=== PATIENT | male | born 1970 | race Caucasian/White ===

== ENCOUNTER 2017-08-14 13:02 | Inpatient (IN) ==
--- NOTE | 2017-08-14 13:24 | Emergency Department Note ---
Disposition Clinical Impression: Ischemic stroke, Sensory deficit, right, Broca's aphasia Disposition: Admitted As Inpatient Condition: Fair Time of Disposition: 21:48 Neuro HPI - General Chief Complaint: ED Neuro Symptoms/Deficit Stated Complaint: neuro symptoms Time Seen by Provider: 08/14/17 13:15 Source: patient Mode of arrival: ambulatory Limitations: no limitations Nursing Notes Reviewed: Yes Vital Signs Reviewed: Yes - History of Present Illness HPI Narrative: Mr. Crowe, 47-year-old male, presents from home for evaluation of neuro deficits. This began evening with right upper extremity decrease in sensation and very mild difficulty speaking. He was at his chiropractor Tuesday which did not improve or change his symptoms. Tuesday afternoon/evening , he developed right lower extremity decrease in sensation and his difficulty in speaking slightly progressed. Tuesday, his right upper and lower extremity sensory changes persisted and his difficulty in speaking worsened such that it was, at that point, noticed by his . This is unchanged through to Tuesday (today). Patient has no history of cardiac dysrhythmia. No history of CVA or TIA. ROS: Positive: As above Negative: Nausea, vomiting, headache, changes in vision, neck pain, fever, chills, chest pains, palpitations, dyspnea, diaphoresis, unusual back pains. He has no weakness or ataxia. - Related Data Home Medications: Home Medications Medication Instructions Recorded Confirmed Ibuprofen [Motrin] 600 mg PO Q8HR PRN 08/14/17 08/14/17 Allergies/Adverse Reactions: Allergies Allergy/AdvReac Type Severity Reaction Status Date / Time No Known Allergies Allergy Verified 08/14/17 13:05 All systems ED: reviewed and negative except as stated. Review of Systems: As Per HPI Past Medical History - Past Medical History Medical history: Reports: no medical history Psychiatric history: Reports: no psych history - Social History Smoking Status: Current every day smoker Alcohol use: Reports: rarely Drug use: Reports: none Physical Exam Vital Signs Reviewed General: Patient is alert, oriented, and in no acute distress. Head: atraumatic, normocephalic Eye: normal appearance, PERRL, EOMI, no scleral icterus, no conjunctival injection ENT: mucous membranes moist, normal external ear exam Neck: normal inspection, trachea midline, full ROM Chest: normal inspection, symmetric chest rise Respiratory: Good respiratory effort. Bilateral breath sounds are clear without wheezing, crackles, or rhonchi. Cardiovascular: Regular rate and rhythm. No clicks, rubs, gallops, or murmors. Normal heart sounds. Abdomen: Bowel sounds present normoactive x-4 quadrants. Abdomen is soft, nondistended, and nontender. No guarding or rebound. No organomegaly noted. Musculoskeletal: Spontaneously moving all extremities. Strength 5/5 and equal bilaterally in upper and lower extremities. Skin: warm, dry, intact. Neuro: Alert and oriented x4. Sensation light touch intact. Slight slurring of speech and difficulty finding his words. No facial asymmetry. Cranial nerves II through XII intact. No extremity drift. Negative finger-nose. Psych: Patient's affect is appropriate for situation. - General Limitations: no limitations General appearance: alert Course Course Narrative: Code stroke called. NIHSS 3. CT head showed no hemorrhage; concerning for left frontal lobe edema. MRI with contrast pending. Discussed the patient with [facility] aoc director combat operations officer neurology; no need to proceed to the robot as patient is not a tPa candidate. Discussed the patient with [place] [facility]. MRI without contrast was consistent with ischemia and no mass visualized. As such, their recommendation was to forgo MRI with contrast. I discussed the patient with on-call neurology, Dr. Gamble. He is agreeable to bring the patient into the hospital for continued evaluation and management. Recommend patient has aspirin at this time with further workup pending. I discussed the above in detail with the patient and his at bedside. We reviewed his MRI, the area of ischemia, and its relationship to his symptoms. We discussed the likely workup and the importance of admission to monitor him neurologically and further evaluate potential causes of his stroke. They express understanding and agree to admission for further evaluation and management. Discussed the patient with the admitting hospitalist who agrees to accept the patient for further evaluation and management. Head CT 08/14/17 13:19 IMPRESSION: Edema within the left frontal lobe and which could represent acute to subacute infarct. An underlying mass should be excluded. MRI would be helpful to further evaluate. Findings were called to the ordering service at 1:38 pm on 08/14/2017. D/ / Kristin Ravi Cha, MD / Kristin Ravi Cha, MD Interpreting Provider: Kristin Ravi Cha, MD Brain MRI 08/14/17 13:44 IMPRESSION: Acute moderate-sized left MCA infarct involving the left frontoparietal lobe. Small old bilateral cerebellar lacunes. D/ / 08/14/2017 15:38:33 Vasile Lee MD / [email or web address] Interpreting Provider: Vasile Lee MD Vital Signs Temperature 98.0 F 08/14/17 13:05 Pulse Rate 79 08/14/17 13:05 Respiratory Rate 16 08/14/17 13:05 Blood Pressure 128/80 08/14/17 13:05 O2 Sat by Pulse Oximetry 97 08/14/17 13:05 Temperature 98 F 08/14/17 17:17 Pulse Rate 78 08/14/17 21:08 Respiratory Rate 96 08/14/17 21:08 Blood Pressure 111/75 08/14/17 21:08 O2 Sat by Pulse Oximetry 97 08/14/17 17:17 Oxygen Delivery Oxygen Delivery Room Air Neuro Symptoms/Deficit - Medical Records Medical records reviewed: Yes I reviewed the patient's medical records. - Lab Data Lab results reviewed: Yes I reviewed the patient's lab results. Result diagrams: 08/14/17 13:21 08/14/17 13:21 Lab Results 08/14/17 08/14/17 08/14/17 Range/Units 13:21 13:21 13:21 WBC 9.3 (4.3-11.1) K/mcL RBC 5.14 (4.19-5.50) M/mcL Hgb 15.4 (12.9-16.9) g/dL Hct 46.1 (37.5-50.1) % MCV 89.7 (83.0-100.0) fL MCH 30.0 (28.0-33.3) pg MCHC 33.4 (31.6-35.5) g/dL RDW 13.7 (11.5-14.5) % Plt Count 246 (140-400) K/mcL MPV 9.3 L (9.4-12.4) fL Immature Gran % 0.2 (0-4) % Seg Neutrophils % 49.7 % Lymphocytes % 35.2 % Monocytes % 8.8 % Eosinophils % 5.2 % Basophils % 0.9 % Neutrophils # 4.6 (1.6-8.9) K/mcL Lymphocytes # 3.3 (0.6-4.6) K/mcL Monocytes # 0.8 (0.0-1.3) K/mcL Eosinophils # 0.5 (0.0-0.6) K/mcL Basophils # 0.1 (0.0-0.2) K/mcL Immature Plt Fraction 2.1 (1.1-6.1) % PT 10.5 (9.4-12.1) Seconds INR 1.0 APTT 26.6 (26.0-36.0) Seconds Sodium 140 (136-145) mEq/L Potassium 4.3 (3.5-5.1) mEq/L Chloride 111 H (98-107) mEq/L Carbon Dioxide 25 (23-29) mEq/L BUN 15 (6-20) mg/dL Creatinine 1.15 (0.70-1.30) mg/dL Est GFR ( Amer) > 60 (> 60) Est GFR (Non-Af Amer) > 60 (> 60) BUN/Creatinine Ratio 13 (6-26) Glucose 86 (70-105) mg/dL POC Glucose (58-89) Calculated Osmolality 290 (280-300) Calcium 9.3 (8.6-10.3) mg/dL Troponin I (< 0.04) ng/mL 08/14/17 08/14/17 Range/Units 13:21 13:35 WBC (4.3-11.1) K/mcL RBC (4.19-5.50) M/mcL Hgb (12.9-16.9) g/dL Hct (37.5-50.1) % MCV (83.0-100.0) fL MCH (28.0-33.3) pg MCHC (31.6-35.5) g/dL RDW (11.5-14.5) % Plt Count (140-400) K/mcL MPV (9.4-12.4) fL Immature Gran % (0-4) % Seg Neutrophils % % Lymphocytes % % Monocytes % % Eosinophils % % Basophils % % Neutrophils # (1.6-8.9) K/mcL Lymphocytes # (0.6-4.6) K/mcL Monocytes # (0.0-1.3) K/mcL Eosinophils # (0.0-0.6) K/mcL Basophils # (0.0-0.2) K/mcL Immature Plt Fraction (1.1-6.1) % PT (9.4-12.1) Seconds INR APTT (26.0-36.0) Seconds Sodium (136-145) mEq/L Potassium (3.5-5.1) mEq/L Chloride (98-107) mEq/L Carbon Dioxide (23-29) mEq/L BUN (6-20) mg/dL Creatinine (0.70-1.30) mg/dL Est GFR ( Amer) (> 60) Est GFR (Non-Af Amer) (> 60) BUN/Creatinine Ratio (6-26) Glucose (70-105) mg/dL POC Glucose 84 (58-89) Calculated Osmolality (280-300) Calcium (8.6-10.3) mg/dL Troponin I < 0.03 (< 0.04) ng/mL - Radiology Data Radiology results reviewed: Yes I reviewed the patient's radiology results. Head CT 08/14/17 13:19 IMPRESSION: Edema within the left frontal lobe and which could represent acute to subacute infarct. An underlying mass should be excluded. MRI would be helpful to further evaluate. Findings were called to the ordering service at 1:38 pm on 08/14/2017. D/ / Kristin Ravi Cha, MD / Kristin Ravi Cha, MD Interpreting Provider: Kristin Ravi Cha, MD Brain MRI 08/14/17 13:44 IMPRESSION: Acute moderate-sized left MCA infarct involving the left frontoparietal lobe. Small old bilateral cerebellar lacunes. D/ / 08/14/2017 15:38:33 Vasile Lee MD / [email or web address] Interpreting Provider: Vasile Lee MD Stroke Scale - Level of Consciousness LOC: Alert - LOC Questions LOC Questions: Answers both correctly - LOC Commands LOC Commands: Performs both correctly - Best Gaze Best Gaze: Normal - Visual Visual: No visual loss - Facial Palsy Facial Palsy: Normal - Motor Arms Motor Arm-Left: No drift for 10 seconds Motor Arm-Right: No drift for 10 seconds - Motor Legs Motor Leg-Left: No drift for 5 seconds Motor Leg-Right: No drift for 5 seconds - Limb Ataxia Limb Ataxia: Normal, No Ataxia - Sensory Sensory: Mild to moderate loss, "not as sharp" - Best Language Best Language: Mild to moderate aphasia. Examiner can identify picture from response - Dysarthria Dysarthria: Mild, slurs some words - Extinction and Inattention Extinction and Inattention: Normal - NIHSS Total Score NIHSS Total Score: 3 TPA Checklist - Source Information Source: Patient - Eligibilty for IV tPA 1. LKW equal to or less than 4.5 hours be before treatment: No - LKW: 3-4.5 hrs Add. Warnings/Precautions Patient/family understanding: The patient/family members have been counseled and understood the risk, benefit , and alternatives of treatment. Critical Care Time Critical Care Time: Yes Total Critical Care Time: 35 Attestation: The high probability of a clinically significant, sudden or life threatening deterioration of the [neuro] system(s) required my full and direct attention, intervention and personal management. The aggregate critical care time was [35] minutes. This time is in addition to time spent performing reported procedures but includes the following: [x] Data Review and interpretation [x] Patient assessment and monitoring of vital signs [x] Documentation [x] Medication orders and management Attestation Statement - Attestation Attestation: I examined this patient and my medical decision-making was reviewed with the Resident Physician, Dr. Carreno. I agree with the documented findings, disposition and treatment plan as described except to the extent set forth below. Patient is a 47-year-old white male who presents to the emergency department brought by his today for concerns for difficulty finding words and right- sided numbness that has been developing gradually evening. Patient reports that he seen a chiropractor before for back pain and he thought he was having some numbness due to related back discomfort and was seen on Tuesday at the chiropractor's office had treatment but without improvement. Then Tuesday morning patient began to feel like his speech was worsening and he was having persistent right-sided numbness in the right arm and leg. Patient has clear speech but has difficulty thinking of what to say to answer questions. Patient with no focal weakness or facial droop on exam. Stroke alert was called. I agree with patient's physical exam findings as documented. Vital signs are stable on arrival. Patient is in no acute distress. Pt was sent for immediate noncontrast head CT which showed findings concerning for possible infarct versus mass in the left frontoparietal area. MRI showed acute moderate left MCA stroke. Case was discussed with neuro he was consulted from the ED as well as the hospitalist. Patient received aspirin and has been neurologically stable resting comfortably with stable vital signs.
[2017-08-14 13:29] LABS: Basophils # 0.1 K/mcL (0.0-0.2); Basophils % 0.9 %; Eosinophils # 0.5 K/mcL (0.0-0.6); Eosinophils % 5.2 %; Hematocrit 46.1 % (37.5-50.1); Hemoglobin 15.4 g/dL (12.9-16.9); Immature Granulocytes % 0.2 % (0-4); Immature Platelets 2.1 % (1.1-6.1); Lymphocytes # 3.3 K/mcL (0.6-4.6); Lymphocytes % 35.2 %; Mean Corpuscular HGB Conc 33.4 g/dL (31.6-35.5); Mean Corpuscular Volume 89.7 fL (83.0-100.0); Mean Platelet Volume 9.3 fL (9.4-12.4); Monocytes # 0.8 K/mcL (0.0-1.3); Monocytes % 8.8 %; Neutrophils # 4.6 K/mcL (1.6-8.9); Platelet Count 246 K/mcL (140-400); Red Blood Count 5.14 M/mcL (4.19-5.50); Red Cell Distribution Width 13.7 % (11.5-14.5); Segmented Neutrophils % 49.7 %
[2017-08-14 13:40] LABS: Prothrombin Time 10.5 Seconds (9.4-12.1)
[2017-08-14 13:43] LABS: Activated Partial Thrombo Time 26.6 Seconds (26.0-36.0)
[2017-08-14] MEDS ORDERED: Aspirin 81 MG TAB.CHEW PO ONE (13:45)
[2017-08-14 13:46] LABS: BUN/Creatinine Ratio 13 (6-26); Blood Urea Nitrogen 15 mg/dL (6-20); Calcium 9.3 mg/dL (8.6-10.3); Carbon Dioxide 25 mEq/L (23-29); Chloride 111 mEq/L (98-107); Glucose 86 mg/dL (70-105); Osmolality,Calculated 290 (280-300); Potassium 4.3 mEq/L (3.5-5.1); Sodium 140 mEq/L (136-145); eGFR For African Americans > 60 (> 60); eGFR For Non-African Americans > 60 (> 60)
--- NOTE | 2017-08-14 18:05 | Internal Med History&Physical ---
Date of Encounter: 08/15/17 Time of Encounter: 18:00 Assessment and Plan (1) Left acute arterial ischemic stroke, MCA (middle cerebral artery) Current visit: Yes Status: Acute Continue aspirin 325 mg daily PT/OT goal LDL <70 Echocardiogram drug screen Neurology consulted, recommendations appreciated. Internal Medicine - H&P: HPI History of present illness: Mr. Crowe is a 47 year old male presented to ED with difficultly with speech and right sided extremity numbness. occurred 4 days ago. Patient went to chiropractor to improve symptoms but did not help. Patient had CT head done in ED showing hypodensity of MCA distribution and a follow-up MRI showed ischemia of left MCA. Patient states symptoms are near resolved except some residual numbness. He has no known past medical history. He denies drug use, denies family history of VTE. Past Med Surg Social Fam HX - Past Medical History Medical history: no medical history Psychiatric history: no psych history - Past Surgical History Surgical History: appendectomy - Social History Smoking Status: Current every day smoker Packs per day: 1/2 PPD Alcohol use: rarely Drug use: none - Family History Mother Living Status: Still Living Hx Family Medical Disorders: Yes (DVT in LEGS) Father Living Status: Still Living Internal Medicine - H&P: Meds Ibuprofen [Motrin] 600 mg PO Q8HR PRN 08/14/17 [History] 3 Allergy/AdvReac Type Severity Reaction Status Date / Time No Known Allergies Allergy Verified 08/14/17 13:05 All Systems PM: A 10-system review of systems was performed and is negative for pertinent findings except as documented above in the HPI. - Constitutional Constitutional: no chills, no fever(s), no night sweats - EENT Eyes: no change in vision, no discharge, no pain, no photophobia Ears: no ear discharge, no ear pain, no tinnitus Nose, mouth and throat: no dysphagia, no nasal discharge, no neck pain, no sore throat - Cardiovascular Cardiovascular ROS IM: no chest pain, no diaphoresis, no dyspnea, no lightheadedness, no palpitations, no syncope - Respiratory Respiratory: no cough, no dyspnea, no wheezing, no excessive phlegm production - Gastrointestinal Gastrointestinal: no abdominal pain, no diarrhea, no hematemesis, no hematochezia, no melena, no nausea, no vomiting - Musculoskeletal Musculoskeletal ROS IM: numbness, tingling - Integumentary Integumentary IM: no rash, no unusual bruising - Neurological Neurological ROS: abnormal speech, numbness, tingling, no confusion, no convulsions, no focal weakness, no tremor(s) - Hematologic/Lymphatic Hematologic/Lymphatic: no easy bruising - Constitutional Vitals: Temp Pulse Resp BP Pulse Ox 98 F 61 17 124/84 97 08/14/17 17:17 08/14/17 17:17 08/14/17 17:17 08/14/17 17:17 08/14/17 17:17 - Head Head exam: Present: atraumatic, normocephalic - Eye Eye exam: Present: PERRL, conjuntiva pink, sclera anicteric Pupils: Present: PERRL - Neck Neck exam general surgery: Present: supple, trachea midline. Absent: lymphadenopathy - Respiratory Respiratory exam: Present: CTAB. Absent: accessory muscle use, rales, rhonchi, wheezes - Cardiovascular Cardiovascular exam: Present: RRR, +S1, +S2. Absent: diastolic murmur, gallop, rubs, systolic murmur - GI/Abdominal GI/Abdominal exam: Present: normal bowel sounds, soft, no peritoneal signs. Absent: distended, tenderness - Extremities Exam Extremities exam: Present: warm, radial pulses palpable and symmetrical. Absent : calf tenderness, cyanotic, pedal edema - Neurological Exam Neurological exam: Present: CN II-XII intact, oriented X3, no focal deficits. Absent: pronater drift, facial droop, speech deficit - Skin Skin exam: Present: dry, intact Internal Med - H&P Results - Labs CBC & Chem 7: 08/15/17 05:52 08/15/17 05:52
[2017-08-14] MEDS ORDERED: Acetaminophen 325 MG TABLET PO PRN (19:25)
[2017-08-14] MEDS ORDERED: Naloxone 0.4 MG/ML INJ IVP PRN (19:25)
--- NOTE | 2017-08-14 20:55 | Neurology - Consult Note ---
Date of Encounter: 08/14/17 Time of Encounter: 05:40 Assessment and Plan (1) Left acute arterial ischemic stroke, MCA (middle cerebral artery) Current Visit: Yes Status: Acute PT already had MRI of head showed evidence of acute moderate-sized left MCA infarct involving the left frontoparietal lobe. Considering patient history seemed like he did not have much risk factors apparently he did not have any history of hypertension or diabetes or any other risk factors except age and smoking. The infarct seems to be in the typical MCA distribution currently he has been on antiplatelet therapy with aspirin only have suggested they should continue but he would need stroke workup including MRI of the brain, echocardiogram as well as carotid duplex to look for any embolic source. Also need to monitor him for any atrial fibrillation and at the same time also suggest to check for any intracranial stenosis recommended getting a CT angiogram of the head and neck and particularly for any findings to be concern of vasculitis especially because of his age and at the same time also suggest getting a thrombotic tendency profile. He denies any family history of a stroke at an early age but certainly that need to be excluded. For secondary stroke prevention patient should continue daily antiplatelet medication and vascular risk factor modification. Order the following test, *MRI of the brain without contrast. *Antiplatelet medication, aspirin 325 mg daily. *Consult physical therapy/ rehabilitation * To reduce the risk of future ischemic stroke patient need continued vascular risk modification, following's are the recommended guidelines LDL goal less than 70 MG per deciliter Smoking cessation reinforced. Blood pressure control should achieve less than 130/80 mmHg BP management should aim to achieve long-term control in a reasonable amount of time. weight management goal for BMI is 18.5 -24.9 Kg/m2 Alcohol : No more than 2 drinks per day for men Patient to continue to follow-up with his primary care physician for continued outpatient risk factor management and modification. History of Present Illness HPI: Mr. Crowe is a 47 year old male admitted from for evaluation of difficulty with speech, and right sided numbness, This began evening with right upper extremity decrease in sensation and very mild difficulty speaking. He was at his chiropractor Tuesday morning which did not improve or change his symptoms. Tuesday afternoon/evening, he developed right lower extremity decrease in sensation and his difficulty in speaking slightly progressed. Tuesday morning, his right upper and lower extremity sensory changes persisted and his difficulty in speaking worsened so finally he came to ER, CT of head showed hypodensity in left MCA distribution. later had MRI of brain showed ischemic changes Past Med Surg Social Fam HX - Past Medical History Medical history: no medical history Psychiatric history: no psych history - Past Surgical History Surgical History: appendectomy - Social History Smoking Status: Current every day smoker Packs per day: 1/2 PPD Alcohol use: rarely Drug use: none - Family History Mother Living Status: Still Living Hx Family Medical Disorders: Yes (DVT in LEGS) Father Living Status: Still Living Medications and Allergies Ibuprofen [Motrin] 600 mg PO Q8HR PRN 08/14/17 [History] 3 Allergy/AdvReac Type Severity Reaction Status Date / Time No Known Allergies Allergy Verified 08/14/17 13:05 All Systems: A 10-system review of systems was performed and is negative for pertinent findings except as documented above in the HPI. Physical Examination - Vital Signs Vital Signs: Initial Vital Signs Temp Pulse Resp BP Pulse Ox 98.0 F 79 16 128/80 97 08/14/17 13:05 08/14/17 13:05 08/14/17 13:05 08/14/17 13:05 08/14/17 13:05 - Constitutional General appearance: comfortable - Neurologic Sensorimotor examination: intact Detailed motor examination: full strength in all major muscle groups Motor examination - right side: 5/5: deltoids, biceps, triceps, wrist flexion, wrist extension, primary substance abuse counselor, hip flexors, tibialis Anterior, quadriceps, toe extension (EHL), plantarflexion Motor examination - left side: 5/5: deltoids, biceps, triceps, wrist flexion, wrist extension, hip flexors, primary substance abuse counselor, quadriceps, tibialis Anterior, toe extension (EHL), plantarflexion Detailed sensory examination: other (decreased sensation in right upper ext) Reflexes: Biceps: 1+, Triceps: 1+, Brachioradialis: 1+, Patella: 1+, Achilles: 1 + Mental Status Examination: awake, alert, oriented to person, oriented to place, oriented to time, follows commands appropriately, answers questions appropriately, no agnosia, no aphasia, no aproxia, expressive aphasia ( difficulty in naming, and repetetion, comprehension intact) Cranial nerve examination: PERRL, EOMI, visual jarrett intact, corneal reflexes brisk symmetrically, sensory to face intact, mastication intact, no facial asymmetry is present, hearing is intact symmetrically, soft palate elevates bilaterally upon phonation, gag reflex intact, flexes SCM and trapezius muscles symmetrically with full power, tongue protrudes midline, no atrophy or facial fasiculations present Cerebellar examination: no dysmetria, performs finger to nose and heel to michael symmetrically without ataxia, no gait ataxia, no truncal ataxia, no difficulty with rapid alternating movements Results - Laboratory Findings CBC and BMP: 08/14/17 13:21 08/14/17 13:21 Abnormal lab findings: Abnormal lab results MPV 9.3 fL (9.4-12.4) L 08/14/17 13:21 Chloride 111 mEq/L (98-107) H 08/14/17 13:21 - Diagnostic Findings Additional findings: MRi of brain showed Acute moderate-sized left MCA infarct involving the left frontoparietal lobe. Small old bilateral cerebellar lacunes. Consult Discharge Plan - Plan Referrals: Syed Mireles MD [Primary Care Provider] -
[2017-08-14 23:19] LABS: Vitamin B12 240 pg/mL (250-1100)
[2017-08-14 23:37] LABS: Rheumatoid Factor < 10 IU/mL (Less than 14)
[2017-08-15] MEDS: Ibuprofen 800 MG TABLET PO PRN ×2 (00:19→19:51)
[2017-08-15 06:47] LABS: Basophils # 0.1 K/mcL (0.0-0.2); Basophils % 0.9 %; Eosinophils # 0.4 K/mcL (0.0-0.6); Eosinophils % 5.4 %; Hematocrit 43.5 % (37.5-50.1); Hemoglobin 14.7 g/dL (12.9-16.9); Immature Granulocytes % 0.1 % (0-4); Lymphocytes # 2.6 K/mcL (0.6-4.6); Lymphocytes % 33.1 %; Mean Corpuscular HGB Conc 33.8 g/dL (31.6-35.5); Mean Corpuscular Hemoglobin 30.2 pg (28.0-33.3); Mean Corpuscular Volume 89.5 fL (83.0-100.0); Mean Platelet Volume 9.9 fL (9.4-12.4); Monocytes # 0.7 K/mcL (0.0-1.3); Monocytes % 9.3 %; Platelet Count 223 K/mcL (140-400); Red Blood Count 4.86 M/mcL (4.19-5.50); Red Cell Distribution Width 13.8 % (11.5-14.5); Segmented Neutrophils % 51.2 %
[2017-08-15 07:09] LABS: BUN/Creatinine Ratio 18 (6-26); Blood Urea Nitrogen 17 mg/dL (6-20); Calcium 8.9 mg/dL (8.6-10.3); Carbon Dioxide 23 mEq/L (23-29); Chloride 111 mEq/L (98-107); Glucose 98 mg/dL (70-105); Osmolality,Calculated 288 (280-300); Sodium 138 mEq/L (136-145); eGFR For African Americans > 60 (> 60); eGFR For Non-African Americans > 60 (> 60)
[2017-08-15] MEDS: Aspirin 325 MG TABLET PO SCH (09:08)
--- NOTE | 2017-08-15 15:11 | Internal Med Progress Note ---
Date of Encounter: 08/15/17 Time of Encounter: 10:15 - Assessment and plan (1) Left acute arterial ischemic stroke, MCA (middle cerebral artery) Current Visit: Yes Status: Acute Assessment and plan: Acute CVA -outside of TPA window 2D Echo does show possible PFO w Rto left shunt consult placed for cardiology He does have a questionable history of a DVT. Appreciate neuro workup for hypercoagulable state PT consult pending per OT consult- he may be able to go home Needs speech eval- significant speech deficit Will convert to inpatient based on acuteness of CVA for now maximize medical management as per suggestion from neurology (2) Sensory deficit, right Current Visit: Yes Status: Acute Assessment and plan: see plan above - Time Spent With Patient 25 - 35 minutes (greater than 50% time spent in) - Subjective Interval history: Eyes new symptoms overnight. Patient does have some speech deficit at this point his overall strength is better has stated that his right arm feels funny - Constitutional Vitals: Temp Pulse Resp BP Pulse Ox 97.8 F 66 14 118/65 94 08/15/17 15:04 08/15/17 15:04 08/15/17 15:04 08/15/17 15:04 08/15/17 15:04 Exam: General , Alert , oriented, no confusion HEENT- PERRLA. EOMI CVS- S1S2 N, No Murmurs, Rubs, gallops, No JVD RS- CTA Bilaterally. No rales no Rhonchi heard Abdomen- Soft NT ND, bowel sounds heard across all 4 quadrants Neuro- speech deficit- speaks slowly, CN 2-12 intact, Motors- power 5/5 UE, 5/5 LE Bilaterally, Sensations intact Extremeties- no Clubbing/ edema/ wounds seen Internal Medicine: Result - Labs CBC & Chem 7: 08/15/17 05:52 08/15/17 05:52 Labs: Short CBC 08/15/17 Range/Units 05:52 WBC 7.8 (4.3-11.1) K/mcL Hgb 14.7 (12.9-16.9) g/dL Hct 43.5 (37.5-50.1) % Plt Count 223 (140-400) K/mcL Neutrophils # 4.0 (1.6-8.9) K/mcL BMP 08/15/17 05:52 Sodium 138 Potassium 4.0 Chloride 111 H Carbon Dioxide 23 BUN 17 Creatinine 0.97 Glucose 98 Calcium 8.9 - ABG Interpretation ABG results: PT/INR, D-dimer PT 10.5 Seconds (9.4-12.1) 08/14/17 13:21 - Impressions Impressions Head CTA 08/14/17 21:01 IMPRESSION: Unremarkable CTA of the head and neck. In particular there is no left MCA intra-arterial thrombus or stenosis. D/ / Bill Esparza MD / Bill Esparza MD Interpreting Provider: Bill Esparza MD Neck CTA 08/14/17 21:01 IMPRESSION: Unremarkable CTA of the head and neck. In particular there is no left MCA intra-arterial thrombus or stenosis. D/ / Bill Esparza MD / Bill Esparza MD Interpreting Provider: Bill Esparza MD Echocardiogram 08/15/17 19:28 Impressions: LVEF 60-65%. Normal LV chamber size, wall thickness and function. Mild left ventricular diastolic dysfunction. Normal right ventricular structure and function. Unable to estimate RVSP due to lack of TR jet. No significant valvular dysfunction. Suboptimal image quality, but there evidence of a right to left shunt with agitated saline, possibly representing a small PFO. Left Ventricular Wall Motion: Rest Echo Findings All wall segments showed normal motion. Findings: Study Quality * Technically adequate exam. ECG Findings * Normal sinus rhythm. Left Ventricle * LVEF 60-65%. * Normal LV chamber size, wall thickness and function. * Mild left ventricular diastolic dysfunction. Right Ventricle * Normal right ventricular structure and function. Left Atrium * Normal left atrial size. Right Atrium * Normal right atrial size. Interatrial Septum * Suboptimal image quality, but there evidence of a right to left shunt with agitated saline, possibly representing a small PFO. Aortic Valve * Trileaflet aortic valve with normal function. * No aortic regurgitation. * No aortic stenosis. Mitral Valve * Normal mitral valve structure and function. * No mitral regurgitation. * No mitral stenosis. Tricuspid Valve * Normal tricuspid valve structure and function. * No tricuspid regurgitation. * Unable to estimate RVSP due to lack of TR jet. Pulmonic Valve * Normal pulmonic valve structure and function. * No pulmonic regurgitation. Aorta * Normally sized aortic root. Pericardium * The pericardium appears normal. IVC * Normal IVC dimensions and inspiratory collapse. Pulmonary Artery * Normal visualized portions of the main pulmonary artery. Consult Discharge Plan - Plan Referrals: Syed Mireles MD [Primary Care Provider] -
--- NOTE | 2017-08-15 16:51 | Neurology Progress Note ---
Date of Encounter: 08/15/17 Time of Encounter: 07:20 Assessment and Plan (1) Left acute arterial ischemic stroke, MCA (middle cerebral artery) Current Visit: Yes Status: Acute Overall stable but continued to have features of aphasia. He is getting a stroke workup. CT angiogram of the cervical spine did not show any critical stenosis in the carotid. Elevates echocardiogram today. Suggest to continue on his statin as well as aspirin for now. Suggested monitor for any atrial fibrillation perhaps he could have paroxysmal A. fib/ As the stroke seems to be embolic in the left MCA distribution. Hypercoagulable workup has been ordered. Patient would need long-term speech therapy. If echo is inconclusive perhaps he may need a DHARMESH. We will follow the patient with you Subjective Interval history: The patient seems to be stable no new symptoms continued to have features of Broca's aphasia no focal motor deficit Scheduled for echocardiogram today. CT angiogram of the neck did not show any acute abnormality. Objective - Constitutional Vitals: Temp Pulse Resp BP Pulse Ox 97.8 F 66 14 118/65 94 08/15/17 15:04 08/15/17 15:04 08/15/17 15:04 08/15/17 15:04 08/15/17 15:04 - Neurological Exam Sensorimotor examination: Present: intact Motor Examination: Present: full strength in all major muscle groups Motor examination - left side: 5/5: deltoids, biceps, triceps, wrist flexion, wrist extension, hip flexors, energy attorney, quadriceps, tibialis Anterior, toe extension (EHL), plantarflexion Sensation intact: Present: other (decreased sensation in right upper ext) Mental Status Examination: Present: awake, alert, oriented to person, oriented to place, oriented to time, follows commands appropriately, answers questions appropriately, no agnosia, no aphasia, no aproxia, expressive aphasia ( difficulty in naming, and repetetion, comprehension intact) Cranial nerve examination: Present: PERRL, EOMI, visual jarrett intact, corneal reflexes brisk symmetrically, sensory to face intact, mastication intact, no facial asymmetry is present, hearing is intact symmetrically, soft palate elevates bilaterally upon phonation, gag reflex intact, flexes SCM and trapezius muscles symmetrically with full power, tongue protrudes midline, no atrophy or facial fasiculations present Cerebellar examination: Present: no dysmetria, performs finger to nose and heel to michael symmetrically without ataxia, no gait ataxia, no truncal ataxia, no difficulty with rapid alternating movements Results - Laboratory Findings CBC and BMP: 08/15/17 05:52 08/15/17 05:52 Abnormal lab findings: Abnormal lab results Chloride 111 mEq/L (98-107) H 08/15/17 05:52 Vitamin B12 240 pg/mL (250-1100) L 08/14/17 22:22 Consult Discharge Plan - Plan Referrals: Syed Mireles MD [Primary Care Provider] -
--- NOTE | 2017-08-15 17:38 | Electrocardiograph Report ---
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
[2017-08-15] MEDS: *HR* Heparin 5,000 UNIT/ML VIAL SQ SCH (19:48)
[2017-08-16] MEDS: *HR* Heparin 5,000 UNIT/ML VIAL SQ SCH ×2 (06:17→17:45)
[2017-08-16 07:36] LABS: Homocysteine 23 umol/L (<=10)
--- NOTE | 2017-08-16 08:50 | Neurology Progress Note ---
Date of Encounter: 08/16/17 Time of Encounter: 07:00 Assessment and Plan (1) Left acute arterial ischemic stroke, MCA (middle cerebral artery) Current Visit: Yes Status: Acute overall stable, no new symptoms, so far no source of emboli, 2D Echo does show possible PFO w Rt to left shunt. schedule for DHARMESH today In particularly to look for any embolic source in the atrium. As is a concern of flow [id number] shunt may need venous duplex of lower extremities. Thrombotic tendency profile is pending. After DHARMESH patient could be discharged he would need a speech therapy As significant a speech deficit. Also recommend long-term Holter monitoring or perhaps may need a loop recorder especially if DHARMESH did not show any abnormality. Patient continued on antiplatelet therapy with aspirin 325 mg daily along with a statin. Patient will need follow-up in neurology in 2-3 weeks after discharge Subjective Interval history: The patient seems to be stable no new symptoms continued to have features of Broca's aphasia no focal motor deficit CT angiogram of the neck did not show any acute abnormality or any critical stenosis, 2D Echo does show possible PFO w Rto left shunt. Objective - Constitutional Vitals: Temp Pulse Resp BP Pulse Ox 97.6 F 64 14 106/68 95 08/16/17 06:50 08/16/17 06:50 08/16/17 06:50 08/16/17 06:50 08/16/17 06:50 - Neurological Exam Sensorimotor examination: Present: intact Motor Examination: Present: full strength in all major muscle groups Motor examination - left side: 5/5: deltoids, biceps, triceps, wrist flexion, wrist extension, hip flexors, stretcher helper, quadriceps, tibialis Anterior, toe extension (EHL), plantarflexion Sensation intact: Present: other (decreased sensation in right upper ext) Mental Status Examination: Present: awake, alert, oriented to person, oriented to place, oriented to time, follows commands appropriately, answers questions appropriately, no agnosia, no aphasia, no aproxia, expressive aphasia ( difficulty in naming, and repetetion, comprehension intact) Cranial nerve examination: Present: PERRL, EOMI, visual jarrett intact, corneal reflexes brisk symmetrically, sensory to face intact, mastication intact, no facial asymmetry is present, hearing is intact symmetrically, soft palate elevates bilaterally upon phonation, gag reflex intact, flexes SCM and trapezius muscles symmetrically with full power, tongue protrudes midline, no atrophy or facial fasiculations present Cerebellar examination: Present: no dysmetria, performs finger to nose and heel to michael symmetrically without ataxia, no gait ataxia, no truncal ataxia, no difficulty with rapid alternating movements Results - Laboratory Findings CBC and BMP: 08/15/17 05:52 08/15/17 05:52 Abnormal lab findings: Abnormal lab results Chloride 111 mEq/L (98-107) H 08/15/17 05:52 Vitamin B12 240 pg/mL (250-1100) L 08/14/17 22:22 Homocysteine 23 umol/L (<=10) H 08/14/17 22:22 Consult Discharge Plan - Plan Referrals: Syed Mireles MD [Primary Care Provider] -
[2017-08-16] MEDS ORDERED: Cyanocobalamin (B-12) 1,000 MCG/ML VIAL IM ONE (09:08)
[2017-08-16] MEDS ORDERED: 0.9 % Sodium Chloride 500 ML IVC ONE (10:14)
[2017-08-16] MEDS ORDERED: Tetracaine/Benzocaine/Butamben 200MG/SPRAY (100SPY/BOT) MM ONE (10:14)
[2017-08-16] MEDS ORDERED: Lidocaine Viscous Oral Soln 15 ML SOLUTION MM PRN (10:14)
[2017-08-16] MEDS: *HR* Midazolam HCl 5 MG/5 ML VIAL IVP PRN ×3 (10:40→10:50)
[2017-08-16] MEDS: *HR* FentaNYL (PF) 100 MCG/2 ML VIAL IVP PRN ×3 (10:40→10:50)
[2017-08-16] MEDS: Aspirin 325 MG TABLET PO SCH (12:21)
[2017-08-16] MEDS: Vitamin B Complex/Vit C/Vit E 1 EACH TABLET PO SCH (12:21)
--- NOTE | 2017-08-16 12:47 | Electrophysiology Consult Note ---
<George Trevino R - Last Filed: 08/16/17 12:53> Date of Encounter: 08/16/17 Time of Encounter: 12:46 Assessment and Plan (1) Left acute arterial ischemic stroke, MCA (middle cerebral artery) Status: Acute Neurology following. TTE showed possible PFO with right to left shunt. DHARMESH today showed evidence of a PFO with right to left shunt. Neurology mentioned if [id number] shunt may need venous duplex of lower extremities. Will order. Thrombotic tendency profile is pending. Although a PFO is noted, closure is not done at [facility] and there is still concern of underlying arrhythmia that may have caused the CVA. EKG shows sinus rhythm and no arrhythmias noted on telemetry. Discussed with Dr. Elijah Raymundo, who recommends loop insertion to further monitor for underlying arrhythmia. R/B/A discussed and pt agrees to proceed. Had sedation for DHARMESH earlier today, but pt is lucid, alert and oriented x 3, capable of making his own medical decisions. Agree with neurology recommendations of antiplatelet therapy with aspirin 325 mg daily along with a statin. Pending Loop recorder insertion, would be okay for d/c home later today from a cardiac standpoint. Will discuss and review with Dr. Elijah Raymundo. (2) PFO (patent foramen ovale) Status: Acute PFO with right to left shunt noted on DHARMESH. PFO closures not performed at [place]. Typically, closure is not warranted unless recurrent CVA on anticoagulation. As above, plan for loop insertion given concern of underlying arrhythmia as cause of embolic CVA. Discussion w patient/family: The assessment and plan as outlined above was discussed with the patient and/or family members who expressed understanding and agreement. All questions were answered. Thank you for involving us in the care of your patient. Please call with any questions. I will discuss and review all the above with Dr. Elijah Raymundo and make changes as necessary. History of Present Illness Consult date: 08/16/17 Requesting physician: Ella Graf Consult reason: CVA, evaluate for loop Chief complaint: weakness History of present illness: Mr. Crowe is a 47 year old male that presented to ED with difficultly with speech and right sided extremity numbness, occurring 4 days prior to presentation. Patient went to chiropractor to improve symptoms but did not help. Patient had CT head done in ED showing hypodensity of MCA distribution and a follow-up MRI showed acute moderate-sized left MCA infarct involving the left frontoparietal lobe. CVA felt to be embolic in nature. TTE showed preserved EF, could not rule out PFO. Pt underwent DHARMESH today, showed PFO with right to left shunt. EP consulted for further recommendations. No hx of arrhythmias. Telemetry and EKGs reviewed without significant findings. Pt denies palpitations, chest pain or dyspnea. Past Med Surg Social Fam HX - Past Medical History Medical history: no medical history Psychiatric history: no psych history - Past Surgical History Surgical History: appendectomy - Social History Smoking Status: Current every day smoker Packs per day: 0.5 Smokeless Tobacco Status: Yes Alcohol use: rarely Drug use: none - Family History Mother Living Status: Still Living Hx Family Medical Disorders: Yes (DVT in LEGS) Father Living Status: Still Living Medications and Allergies Ibuprofen [Motrin] 600 mg PO Q8HR PRN 08/14/17 [History] Aspirin 325 mg PO DAILY #30 tablet 08/17/17 [Rx] Atorvastatin [Lipitor] 40 mg PO HS #30 tablet 08/17/17 [Rx] 3 Allergy/AdvReac Type Severity Reaction Status Date / Time No Known Allergies Allergy Verified 08/14/17 13:05 All Systems Review: A 10-system review of systems was performed and is negative for pertinent findings except as documented above in the HPI. - Constitutional Constitutional: weakness - Neurological Neurological: focal weakness, numbness Physical Examination Vital Signs, Last 4 Hours Temp Pulse Resp BP Pulse Ox 08/16/17 10:19 97.8 F 65 14 111/68 96 Vital Signs Temp Pulse Resp BP Pulse Ox 08/16/17 10:19 97.8 F 65 14 111/68 96 08/16/17 06:50 97.6 F 64 14 106/68 95 08/16/17 05:39 98.2 F 68 18 97/66 94 08/15/17 20:02 94 08/15/17 18:19 97.7 F 63 18 114/69 96 08/15/17 15:04 97.8 F 66 14 118/65 94 Intake and Output 08/15/17 08/16/17 08/16/17 23:59 07:59 15:59 Intake Total 240 / 240 0 / 0 500 / 500 Output Total 200 / 200 Balance 240 / 240 -200 / -200 500 / 500 Intake: IV Fluids 500 / 500 0.9 % Sodium Chloride 500 ML @ 500 / 500 150 mls/hr IVC .Q3H20M ONE Rx#: [id number] Oral 240 / 240 0 / 0 0 / 0 Output: Urine 200 / 200 Other: Meal Dinner Breakfast Percent of Meal Consumed 100% 0% # Voids 2 Weight 78.1 kg 78.018 kg Patient Weight 08/16/17 23:59 Weight 78.018 kg General: Conversant, No Apparent Distress HEENT: Atraumatic, Normocephaly, Mucus Membranes Moist Neck: No JVD, Normal carotid pulses Cardiac: Reg Rate and Rhythm, Normal S1 and S2, No Murmur Lungs: Normal Breath Sounds, No Wheeze, Rales, Rhonchi Neuro: Alert and responsive, No focal deficits noted Abdomen: Soft, Non-Tender Skin: No rashes noted on visualized skin Musculoskeletal: No Chest Wall Tenderness Extremities: No Clubbing, No Cyanosis, No Edema, Normal Pulses Results 08/15/17 05:52 08/15/17 05:52 Active Medications Acetaminophen (Tylenol) 650 mg PO Q6H PRN PRN Reason: Mild Pain/Fever Stop: 02/13/18 19:26 Aspirin (Aspirin) 325 mg PO DAILY [facility] Stop: 02/14/18 09:01 Last Admin: 08/16/17 12:21 Dose: 325 mg Heparin Sodium (Porcine) (Heparin) 5,000 unit SQ Q12HR SIRISHA Stop: 02/14/18 18:01 Last Admin: 08/16/17 06:17 Dose: 5,000 unit Sodium Chloride (0.9 % Sodium Chloride) 500 mls @ 150 mls/hr IVC .Q3H20M ONE Stop: 08/16/17 13:33 Last Infusion: 08/16/17 11:11 Dose: Infused Ibuprofen (Motrin) 800 mg PO Q8HR PRN; Protocol PRN Reason: Pain Stop: 02/14/18 00:07 Last Admin: 08/15/17 19:51 Dose: 800 mg Naloxone HCl (Narcan) 0.4 mg IVP Q2MIN PRN PRN Reason: SEE COMMENTS Stop: 02/13/18 19:26 Vitamin B Complex/Vit C/Vit E (Stresstab) 1 each PO DAILY SIRISHA PRN Reason: Protocol Stop: 02/15/18 09:16 Last Admin: 08/16/17 12:21 Dose: 1 each - Imaging and Cardiology Echo: report reviewed - EKG Interpretation EKG results cardiology: personally reviewed, other (24 hr tele AVG HR 67, SR, no significant pauses or arrhythmias) Consult Discharge Plan - Plan Instructions: Atorvastatin (By mouth), Ischemic Stroke (DC) Additional Instructions: Please follow up with primary care physician at the next available appointment Please follow up with cardiology Please follow up with neurology within the next 2weeks Please take a 325mg aspirin and atorvastatin 40mg daily Referrals: Cardiology No [Provider Group] [facility] [Provider Group] Syed Mireles MD [Primary Care Provider] - Prescriptions: Aspirin 325 mg PO DAILY #30 tablet Atorvastatin [Lipitor] 40 mg PO HS #30 tablet <Elijah Raymundo - Last Filed: 08/18/17 17:35> Date of Encounter: 08/18/17 - Attending Attestation I have personally performed a face to face evaluation on this patient. I have reviewed and agree with the care plan. History and Exam by me shows: Loop recorder indicated for cyptogenic stroke. Assessment and Plan Discussion w patient/family: The assessment and plan as outlined above was discussed with the patient and/or family members who expressed understanding and agreement. All questions were answered. Thank you for involving us in the care of your patient. Please call with any questions. History of Present Illness History of present illness: Mr. Crowe is a 47 year old male All Systems Review: A 10-system review of systems was performed and is negative for pertinent findings except as documented above in the HPI. Results 08/15/17 05:52 08/15/17 05:52
[2017-08-16] MEDS ORDERED: *HR* Midazolam HCl 2 MG/2 ML VIAL ONE (15:32)
[2017-08-16] MEDS ORDERED: *HR* FentaNYL (PF) 100 MCG/2 ML VIAL ONE (15:32)
[2017-08-16] MEDS ORDERED: 0.9 % Sodium Chloride 1,000 ML ONE (15:32)
--- NOTE | 2017-08-16 15:35 | Pre-Sedation Evaluation ---
Pre-sedation evaluation - Pre-sedation checklist Date of procedure: 08/16/17 Procedure: Loop Recorder Recent Vitals: Last Vital Signs Temp 97.5 F L 08/16/17 14:37 Pulse 67 08/16/17 14:37 Resp 15 08/16/17 14:37 BP 106/77 08/16/17 14:37 Pulse Ox 98 08/16/17 14:37 H&P (including ROS) documented in medical record: Yes Previous reaction to sedatives/anesthetics: No Dietary Status: NPO after Midnight Dentition: No loose teeth or bridges Possible difficult airway: No ASA Classification *see protocol: CLASS II-Mild systemic disease Plan of Care: Pt appropriate candidate for procedure/moderate/conscious sedation , Risks/benefits of procedure/sedation discussed w/ patient/family
--- NOTE | 2017-08-16 16:28 | Event Note ---
Date of Encounter: 08/16/17 Time of Encounter: 16:25 Attempted to see patient x2 today without luck He was in DHARMESH this AM and now getting implantable loop recorder placed I did discuss POC w RN and Neurology today His DHARMESH showed PFO and hence he needs a loop recorder placed prior to DC we would also maximize him from further stroke prevention standpoint w Statin and Antiplatelet 325 ASA at DC He will follow up in 2-[address] Gamble ( his office to make arrangements) Would also need close cardio followup some Hypercoagulable workup is also pending and will need to be followed by PCP.
[2017-08-16 21:54] LABS: APTT (LE Anticoag) 32 sec (32-48); Diluted Russell Viper Venom 33 sec (33-44); PT (LE-Anticoag) 13.2 sec (12.0-15.5)
[2017-08-16 21:55] LABS: Amphetamines NEGATIVE ng/mL (Cutoff 30); Barbiturates NEGATIVE ng/mL (Cutoff 75); Benzodiazepines NEGATIVE ng/mL (Cutoff 75); Cocaine NEGATIVE ng/mL (Cutoff 30); Methadone NEGATIVE ng/mL (Cutoff 40); Methamphetamines NEGATIVE ng/mL (Cutoff 30); Opiates NEGATIVE ng/mL (Cutoff 30); Phencyclidine NEGATIVE ng/mL (Cutoff 15)
[2017-08-17] MEDS: *HR* Heparin 5,000 UNIT/ML VIAL SQ SCH (04:55)
[2017-08-17 07:13] VITALS: BP 122/76
[2017-08-17] MEDS: Vitamin B Complex/Vit C/Vit E 1 EACH TABLET PO SCH (09:17)
[2017-08-17] MEDS: Aspirin 325 MG TABLET PO SCH (09:17)
--- NOTE | 2017-08-17 10:06 | Discharge Summary ---
<Francesco Corea - Last Filed: 08/17/17 11:45> Date of Encounter: 08/17/17 Time of Encounter: 10:04 - Discharge Diagnosis (1) Left acute arterial ischemic stroke, MCA (middle cerebral artery) Priority: Primary Status: Acute (2) Sensory deficit, right Priority: Primary Status: Acute (3) Broca's aphasia Priority: Primary Status: Acute (4) PFO (patent foramen ovale) Priority: Primary Status: Acute - Discharge Medications Prescriptions: Aspirin 325 mg PO DAILY #30 tablet Atorvastatin [Lipitor] 40 mg PO HS #30 tablet Home Medications: Ibuprofen [Motrin] 600 mg PO Q8HR PRN 08/14/17 [History] Aspirin 325 mg PO DAILY #30 tablet 08/17/17 [Rx] Atorvastatin [Lipitor] 40 mg PO HS #30 tablet 08/17/17 [Rx] Allergies/Adverse Reactions: 3 Allergy/AdvReac Type Severity Reaction Status Date / Time No Known Allergies Allergy Verified 08/14/17 13:05 Procedures/tests Complete & Pending: Procedures Performed prior 72 hours Category Date Time Status CL Insert Loop Recorder [CL] Routine Science Professor 08/16/17 13:00 Completed EV DHARMESH transesophageal echo Routine Y 08/16/17 16:53 Completed Venous Doppler [EV venous imaging LE BI] Routine Y 08/16/17 13:01 Completed Date of admission: 08/15/17 15:03 Primary care physician: Syed Mireles, Consults: 08/15/17 15:04 Consult to Cardiology [CONS] Routine Comment: Consulting Provider: Cardiology No Reason for Consult: Acute CVA. Possible PFO on Echo Time Notified: 15:05 Call Completed: Yes 08/16/17 14:23 Consult to Electrophysiology (EP) [CONS] Routine Consulting Provider: Electrophysiology No Reason for Consult: Idiopathic CVA Call Completed: Yes Discharging clinician: Francesco Corea Anticipated date of discharge: 08/17/17 - Patient Status Disposition: Home, Self-Care Condition: Good Overall status at discharge: patient is progressing back to baseline - Discharge Instructions Instructions: Atorvastatin (By mouth), Ischemic Stroke (DC) Follow Up With: Syed Mireles MD [Primary Care Provider] - [facility] [Provider Group] [facility] [Provider Group] Additional Instructions: Please follow up with primary care physician at the next available appointment Please follow up with cardiology Please follow up with neurology within the next 2weeks Please take a 325mg aspirin and atorvastatin 40mg daily - Diet and Activity Activity: return to work once cleared by your PCP/specialist Diet: advance to your usual diet Interval History: Today the patient states that he is doing well physically is ready to go home. She states that he has intermittent tingling in his right hand. But states that this is getting better. States that he has no issues with ambulation he just continues to walk a little slower. Patient's speech is improved with some mild difficulty getting out words. Hospital course: Mr. Crowe is a 47 year old male was admitted to the hospital on 08/14/17 for a acute moderate size left MCA infarct was involving the left frontal parietal lobe. Patient has had some bronchus aphasia while here in the hospital. Patient has been evaluated by cardiology and neurology during this visit. A echocardiogram was performed which showed normal epitrochlear size and function however a PFO with a right to left shunt was identified. Per cardiology note these are not usually repaired unless they have recurrent CVA on anticoagulation. A loop recorder was also placed in this patient due to concern that his CVA could be related to possible arrhythmia. Neurology felt that the patient would be able to be discharged on aspirin and a statin medication. - Time Spent with Patient Total time spent providing and/or coordinating discharge services: Greater than 30 minutes (40 minutes) - Constitutional Vitals: Temp Pulse Resp BP Pulse Ox 97.8 F 71 14 122/76 93 08/17/17 07:10 08/17/17 07:10 08/17/17 07:10 08/17/17 07:10 08/17/17 09:27 General appearance: Present: A&O X 3, no acute distress - Head Head exam: Present: atraumatic, normocephalic - Neck Neck exam general surgery: Present: full ROM, normal inspection, trachea midline - Respiratory Respiratory exam: Present: CTAB. Absent: accessory muscle use, rales, rhonchi, wheezes - Cardiovascular Cardiovascular exam: Present: RRR, +S1, +S2. Absent: diastolic murmur, gallop, rubs, systolic murmur - GI/Abdominal GI/Abdominal exam: Present: normal bowel sounds, soft, no peritoneal signs. Absent: distended, tenderness - Neurological Exam Neurological exam: Present: alert, oriented X3, no focal deficits, strengths equal and symetr throughout, speech deficit. Absent: motor sensory deficit, facial droop - Psychiatric Psychiatric exam: Present: normal affect, normal mood - Skin Skin exam: Present: dry, intact, warm <PreethijoshSean tam - Last Filed: 08/17/17 11:46> Date of Encounter: 08/17/17 Procedures/tests Complete & Pending: Procedures Performed prior 72 hours Category Date Time Status CL Insert Loop Recorder [CL] Routine Science Professor 08/16/17 13:00 Completed EV DHARMESH transesophageal echo Routine Y 08/16/17 16:53 Completed Venous Doppler [EV venous imaging LE BI] Routine Y 08/16/17 13:01 Completed Date of admission: 08/15/17 15:03 Primary care physician: Syed Mireles, Consults: 08/15/17 15:04 Consult to Cardiology [CONS] Routine Comment: Consulting Provider: Cardiology No Reason for Consult: Acute CVA. Possible PFO on Echo Time Notified: 15:05 Call Completed: Yes 08/16/17 14:23 Consult to Electrophysiology (EP) [CONS] Routine Consulting Provider: [facility] Reason for Consult: Idiopathic CVA Call Completed: Yes Hospital course: Mr. Crowe is a 47 year old male - Time Spent with Patient Total time spent providing and/or coordinating discharge services: - Constitutional Vitals: Temp Pulse Resp BP Pulse Ox 97.8 F 71 14 122/76 93 08/17/17 07:10 08/17/17 07:10 08/17/17 07:10 08/17/17 07:10 08/17/17 09:27 - Attending Attestation Follow-up with neurology within the next 2 weeks. Off work until neurology evaluation. Continue aspirin and Lipitor Physical therapy and speech therapy as outpatient I examined this patient and my medical decision-making was reviewed with the Resident Physician. I agree with the documented findings, disposition and treatment plan as described except to the extent set forth below.
--- NOTE | 2017-08-17 11:22 | Neurology Progress Note ---
Date of Encounter: 08/17/17 Time of Encounter: 07:15 Assessment and Plan (1) Left acute arterial ischemic stroke, MCA (middle cerebral artery) Current Visit: Yes Status: Acute overall stable, no new symptoms, so far no source of emboli, 2D Echo does show possible PFO w Rt to left shunt. schedule for DHARMESH today In particularly to look for any embolic source in the atrium. Thrombotic tendency profile is pending. After DHARMESH patient could be discharged he would need a speech therapy As significant a speech deficit. as DHARMESH did not show any abnormality and no evidence of any embolic source was found loop recorder was placed in, will be following with cardiology as well Patient continued on antiplatelet therapy with aspirin 325 mg daily along with a statin. Patient will need follow-up in neurology in 2-3 weeks after discharge Subjective Interval history: The patient seems to be stable no new symptoms continued to have features of Broca's aphasia no focal motor deficit CT angiogram of the neck did not show any acute abnormality or any critical stenosis, 2D Echo does show possible PFO w Rto left shunt. DHARMESH was negative he also had LOOP recorder placed in yesterday Objective - Constitutional Vitals: Temp Pulse Resp BP Pulse Ox 97.8 F 71 14 122/76 93 08/17/17 07:10 08/17/17 07:10 08/17/17 07:10 08/17/17 07:10 08/17/17 09:27 - Neurological Exam Sensorimotor examination: Present: intact Motor Examination: Present: full strength in all major muscle groups Motor examination - left side: 5/5: deltoids, biceps, triceps, wrist flexion, wrist extension, hip flexors, tier and detonator, quadriceps, tibialis Anterior, toe extension (EHL), plantarflexion Sensation intact: Present: other (decreased sensation in right upper ext) Mental Status Examination: Present: awake, alert, oriented to person, oriented to place, oriented to time, follows commands appropriately, answers questions appropriately, no agnosia, no aphasia, no aproxia, expressive aphasia ( difficulty in naming, and repetetion, comprehension intact) Cranial nerve examination: Present: PERRL, EOMI, visual jarrett intact, corneal reflexes brisk symmetrically, sensory to face intact, mastication intact, no facial asymmetry is present, hearing is intact symmetrically, soft palate elevates bilaterally upon phonation, gag reflex intact, flexes SCM and trapezius muscles symmetrically with full power, tongue protrudes midline, no atrophy or facial fasiculations present Cerebellar examination: Present: no dysmetria, performs finger to nose and heel to michael symmetrically without ataxia, no gait ataxia, no truncal ataxia, no difficulty with rapid alternating movements - Stroke Contraindication Rehab Services Not Assessed: Returned to Prior Level of Function Results - Laboratory Findings CBC and BMP: 08/15/17 05:52 08/15/17 05:52 Abnormal lab findings: Abnormal lab results Chloride 111 mEq/L (98-107) H 08/15/17 05:52 HDL Cholesterol 32 mg/dL (40-59) L 08/16/17 08:48 Vitamin B12 240 pg/mL (250-1100) L 08/14/17 22:22 Homocysteine 23 umol/L (<=10) H 08/14/17 22:22 Consult Discharge Plan - Plan Instructions: Atorvastatin (By mouth), Ischemic Stroke (DC) Additional Instructions: Please follow up with primary care physician at the next available appointment Please follow up with cardiology Please follow up with neurology within the next 2weeks Please take a 325mg aspirin and atorvastatin 40mg daily Referrals: [facility] [Provider Group] [facility] [Provider Group] Syed Mireles MD [Primary Care Provider] - Prescriptions: Aspirin 325 mg PO DAILY #30 tablet Atorvastatin [Lipitor] 40 mg PO HS #30 tablet
[2017-08-17 14:57] LABS: ANA IgG by ELISA NONE DETECTED (None Detected)
[2017-08-19 00:39] LABS: FACV Specimen WHOLE BLOOD
[2017-08-19 15:03] LABS: Fac V Leiden R506Q Mut Result NEGATIVE
[2017-08-20 07:13] LABS: Antiphospholipid IgG High Spec 0 GPL (0-14); Antiphospholipid IgM High Spec 5 MPL (0-14)
== END 2017-08-17 12:29 | disposition home or self-care (01) | DRG 41 ==
LOC: EMEROO 13:02 → 2NENU 15:44 → INTOOBSV 15:44 → 2NENU 16:30 → SUATTDRO 08-15 15:03
PROVIDERS: ADMIT Internal Medicine; ATTEND Internal Medicine

== ENCOUNTER 2017-10-12 18:28 | Observation (INO) ==
[2017-10-12] MEDS ORDERED: Aspirin 325 MG TABLET PO ONE (18:32)
--- NOTE | 2017-10-12 18:34 | Emergency Department Note ---
Disposition Clinical Impression: Tingling of left arm and left side of face, Numbness and tingling of right leg Chest pain Qualifiers: Chest pain type: unspecified Qualified Code(s): R07.9 - Chest pain, unspecified TIA (transient ischemic attack) Qualifiers: Transient cerebral ischemia type: unspecified Qualified Code(s): G45.9 - Transient cerebral ischemic attack, unspecified Disposition: Admitted As Inpatient Condition: Good Referrals: Syed Mireles MD [Primary Care Provider] - Forms: ED Satisfaction Letter Time of Disposition: 21:26 General Adult HPI - General Chief complaint: ED Neuro Symptoms/Deficit Stated complaint: Weakness Time Seen by Provider: 10/12/17 18:31 Source: patient Mode of arrival: ambulatory Limitations: no limitations Nursing Notes Reviewed: Yes Vital Signs Reviewed: Yes - History of Present Illness HPI Narrative: Patient is a 47-year-old male with past medical history of hypertension, recent CVA in August 2017 that has left him with residual right hand numbness and tingling. He presents today due to left facial tingling, left upper extremity tingling, right lower extremity tingling. Denies any overt weakness. Denies any difficulty with speech, facial droop. He stated that the symptoms started about an hour ago. Denies any other headache, shortness of breath, nausea, vomiting, abdominal pain, any other injuries, any neck pain. He does report chest pain as well that started early this morning, has been coming and going, described as sharp pain in the center of his chest that radiates to left and right chest, not worse with exertion, not associated with sweating, nausea, vomiting or shortness of breath. He states that these episodes last about a minute at a time and rated a 6 or 7 out of 10. Currently denying any chest pain. No previous [place] or cardiac stents. - Related Data Home Medications Medication Instructions Recorded Confirmed Aspirin Enteric Coated [Aspirin EC] 325 mg PO DAILY 10/12/17 10/12/17 Simvastatin [Zocor] 20 mg PO HS 10/12/17 10/12/17 Tizanidine HCl 2 mg PO HS 10/12/17 10/12/17 Allergies Allergy/AdvReac Type Severity Reaction Status Date / Time No Known Allergies Allergy Verified 08/14/17 13:05 All systems ED: reviewed and negative except as stated. Constitutional: Denies: fever Cardiovascular: Reports: chest pain Respiratory: Denies: cough, dyspnea Gastrointestinal: Denies: abdominal pain, nausea, vomiting Genitourinary: Denies: urgency, dysuria Integumentary: Denies: rash Neurological: Reports: paresthesias. Denies: headache, weakness, numbness Past Medical History - Past Medical History Attestation: Yes The following information was validated with the patient. Source: patient Medical history: Reports: no medical history Surgical history: Reports: appendectomy Psychiatric history: Reports: no psych history - Social History Smoking Status: Current every day smoker Smokeless Tobacco Status: Yes Alcohol use: Reports: rarely Drug use: Reports: none Physical Exam - General Limitations: no limitations General appearance: alert, in no apparent distress - Head Head exam: atraumatic, normocephalic, normal inspection - Eye Eye exam: Present: normal appearance, PERRL, EOMI - ENT ENT exam: normal exam, normal oropharynx, mucous membranes moist - Neck Neck exam: Present: normal inspection, full ROM, trachea midline - Chest Chest inspection: Present: normal inspection, symmetric chest wall rise - Respiratory Respiratory exam: Present: normal lung sounds bilaterally - Cardiovascular Cardiovascular exam: Present: regular rate, normal rhythm, normal heart sounds - Abdominal Exam Abdominal exam: Present: soft, Non-Tender. Absent: tenderness, distention, guarding, rebound, rigidity - Extremities Exam Extremities exam: Present: normal inspection, full ROM. Absent: tenderness, pedal edema - Neurological Exam Neurological exam: Present: alert, oriented X3, CN II-XII intact, motor sensory deficit (No decrease in sensation to light touch of left face, left upper extremity or right lower extremity but he does report subjective or seizures of these areas.), other (see NIH scale for further information) - Psychiatric Psychiatric exam: Present: normal affect, normal mood - Skin Skin exam: Present: warm, dry, intact, normal color Course Course Narrative: Patient vitals within normal limits on my exam. He had no objective weakness on exam.No decrease in sensation to light touch of left face, left upper extremity or right lower extremity but he does report subjective or seizures of these areas. CT skin of the head showed no acute intracranial abnormality but did show encephalomalacia in the area of the previous infarct in August 2017. As of 19:45, patient has already had complete resolution of symptoms, does warrant being a TPA candidate at this time. Will consider this TIA. Chest x- ray was negative. Troponin negative. EKG shows normal sinus rhythm with no acute ST changes. Patient has some mild left-sided chest pain on reevaluation. We will admit for TIA workup and trending troponins. Patient already took aspirin 325 prior to arrival. 21:24 hospitalist asked if I could talk with Chocolate Finisher Operator about PFO prior to accepting the patient for admission. Discussed patient presentation with neurologic symptoms in the setting of PFO. did not feel that the patient needed to be transferred at this time, said that she could not give a definite yes or now as to whether or not the patient would require PFO surgery. She said that cardiology will act as a consult tomorrow and feels comfortable with the patient being admitted here for further care. Chest X-Ray 10/12/17 18:32 IMPRESSION: No acute process. D/ / Jaun Cordoba MD / Jaun Cordoba MD Interpreting Provider: Jaun Cordoba MD Head CT 10/12/17 18:33 IMPRESSION: No acute intracranial abnormality. Encephalomalacia in the left posterior frontal/parietal region adjacent to the sylvian fissure. This represented an acute infarct on the MRI of 08/14/2017. D/ / Yaw Londono MD / Yaw Londono MD Interpreting Provider: Yaw Londono MD Vital Signs Temperature 98.6 F 10/12/17 18:33 Pulse Rate 78 10/12/17 18:33 Respiratory Rate 18 10/12/17 18:33 Blood Pressure 137/91 10/12/17 18:33 O2 Sat by Pulse Oximetry 99 10/12/17 18:33 Temperature 98.6 F 10/12/17 18:33 Pulse Rate 78 10/12/17 18:33 Respiratory Rate 18 10/12/17 18:33 Blood Pressure 137/91 10/12/17 18:33 O2 Sat by Pulse Oximetry 99 10/12/17 18:33 Oxygen Delivery Oxygen Delivery Room Air Medical Decision Making - MDM Narrative Medical decision making narrative: Patient vitals within normal limits on my exam. He had no objective weakness on exam.No decrease in sensation to light touch of left face, left upper extremity or right lower extremity but he does report subjective or seizures of these areas. CT skin of the head showed no acute intracranial abnormality but did show encephalomalacia in the area of the previous infarct in August 2017. As of 19:45, patient has already had complete resolution of symptoms, does warrant being a TPA candidate at this time. Will consider this TIA. Chest x- ray was negative. Troponin negative. EKG shows normal sinus rhythm with no acute ST changes. Patient has some mild left-sided chest pain on reevaluation. We will admit for TIA workup and trending troponins. Patient already took aspirin 325 prior to arrival. 21:24 hospitalist asked if I could talk with Chocolate Finisher Operator about PFO prior to accepting the patient for admission. Discussed patient presentation with neurologic symptoms in the setting of PFO. did not feel that the patient needed to be transferred at this time, said that she could not give a definite yes or now as to whether or not the patient would require PFO surgery. She said that cardiology will act as a consult tomorrow and feels comfortable with the patient being admitted here for further care. - Medical Records Medical records reviewed: Yes I reviewed the patient's medical records. - Lab Data Lab results reviewed: Yes I reviewed the patient's lab results. Result diagrams: 10/12/17 18:45 10/12/17 18:45 Lab Results 10/12/17 10/12/17 10/12/17 Range/Units 18:45 18:45 18:45 WBC 9.8 (4.3-11.1) K/mcL RBC 4.99 (4.19-5.50) M/mcL Hgb 15.3 (12.9-16.9) g/dL Hct 44.5 (37.5-50.1) % MCV 89.2 (83.0-100.0) fL MCH 30.7 (28.0-33.3) pg MCHC 34.4 (31.6-35.5) g/dL RDW 13.6 (11.5-14.5) % Plt Count 238 (140-400) K/mcL MPV 9.7 (9.4-12.4) fL Immature Gran % 0.3 (0-4) % Seg Neutrophils % 43.8 % Lymphocytes % 42.6 % Monocytes % 8.3 % Eosinophils % 4.1 % Basophils % 0.9 % Neutrophils # 4.3 (1.6-8.9) K/mcL Lymphocytes # 4.2 (0.6-4.6) K/mcL Monocytes # 0.8 (0.0-1.3) K/mcL Eosinophils # 0.4 (0.0-0.6) K/mcL Basophils # 0.1 (0.0-0.2) K/mcL PT 10.4 (9.4-12.1) Seconds INR 1.0 APTT 25.8 L (26.0-36.0) Seconds Sodium 137 (136-145) mEq/L Potassium 4.1 (3.5-5.1) mEq/L Chloride 108 H (98-107) mEq/L Carbon Dioxide 24 (23-29) mEq/L BUN 17 (6-20) mg/dL Creatinine 1.09 (0.70-1.30) mg/dL Est GFR ( Amer) > 60 (> 60) Est GFR (Non-Af Amer) > 60 (> 60) BUN/Creatinine Ratio 16 (6-26) Glucose 103 (70-105) mg/dL Calculated Osmolality 286 (280-300) Calcium 9.8 (8.6-10.3) mg/dL Troponin I < 0.03 (< 0.04) ng/mL - Radiology Data Radiology results reviewed: Yes I reviewed the patient's radiology results. Chest X-Ray 10/12/17 18:32 IMPRESSION: No acute process. D/ / Jaun Cordoba MD / Jaun Cordoba MD Interpreting Provider: Jaun Cordoba MD Head CT 10/12/17 18:33 IMPRESSION: No acute intracranial abnormality. Encephalomalacia in the left posterior frontal/parietal region adjacent to the sylvian fissure. This represented an acute infarct on the MRI of 08/14/2017. D/ / Yaw Londono MD / Yaw Londono MD Interpreting Provider: Yaw Londono MD - EKG Data EKG #1 EKG attestation: Yes I reviewed and interpreted this EKG. EKG results narrative: 10/12/2017 18:28. Normal sinus rhythm. Rate 84. MO 162. QRS 85. QTC 387. Normal axis. No acute ST elevation or depression. S.B.A.R. - S.B.A.R. Situation: Demographics, MOA Background: Presenting Complaint, Relevant PMH, Meds, & Allergies Assessment: Vital Signs, Course and respsone to treatment, Exam Concerns, Patient/Family Expectation, Pertinant Lab Results Recommendation: Barrier(s) to disposition, Recommendation based on pending studies, treatments, or consults S.B.A.R. Report Given to: Dr. Boone Attestation Statement - Attestation Attestation: I examined this patient and my medical decision-making was reviewed with the Resident Physician. I agree with the documented findings, disposition and treatment plan as described except to the extent set forth below. Patient presents with strokelike symptoms. An age score is 0. Symptoms are resolving. I do suspect possible TIA. No indication for TPA however I do feel admission for medical maximization and advanced imaging with MRI is indicated. Patient will be admitted after administration of aspirin. NIH Stroke Scale - Level of Consciousness LOC: Alert - LOC Questions LOC Questions: Answers both correctly - LOC Commands LOC Commands: Performs both correctly - Best Gaze Best Gaze: Normal - Visual Visual: No visual loss - Facial Palsy Facial Palsy: Normal - Motor Arms Motor Arm-Left: No drift for 10 seconds Motor Arm-Right: No drift for 10 seconds - Motor Legs Motor Leg-Left: No drift for 5 seconds Motor Leg-Right: No drift for 5 seconds - Limb Ataxia Limb Ataxia: Absent of affected limb too weak to perform exam - Sensory Sensory: Mild to moderate loss, "not as sharp" - Best Language Best Language: No aphasia - Dysarthria Dysarthria: Normal - Extinction and Inattention Extinction and Inattention: Normal - NIHSS Total Score NIHSS Total Score: 1
[2017-10-12 19:06] LABS: Prothrombin Time 10.4 Seconds (9.4-12.1)
[2017-10-12 19:13] LABS: Basophils # 0.1 K/mcL (0.0-0.2); Basophils % 0.9 %; Eosinophils # 0.4 K/mcL (0.0-0.6); Eosinophils % 4.1 %; Hematocrit 44.5 % (37.5-50.1); Hemoglobin 15.3 g/dL (12.9-16.9); Immature Granulocytes % 0.3 % (0-4); Lymphocytes # 4.2 K/mcL (0.6-4.6); Lymphocytes % 42.6 %; Mean Corpuscular HGB Conc 34.4 g/dL (31.6-35.5); Mean Corpuscular Hemoglobin 30.7 pg (28.0-33.3); Mean Corpuscular Volume 89.2 fL (83.0-100.0); Mean Platelet Volume 9.7 fL (9.4-12.4); Monocytes # 0.8 K/mcL (0.0-1.3); Monocytes % 8.3 %; Neutrophils # 4.3 K/mcL (1.6-8.9); Platelet Count 238 K/mcL (140-400); Red Blood Count 4.99 M/mcL (4.19-5.50); Red Cell Distribution Width 13.6 % (11.5-14.5); Segmented Neutrophils % 43.8 %
[2017-10-12 19:18] LABS: Activated Partial Thrombo Time 25.8 Seconds (26.0-36.0); BUN/Creatinine Ratio 16 (6-26); Blood Urea Nitrogen 17 mg/dL (6-20); Calcium 9.8 mg/dL (8.6-10.3); Carbon Dioxide 24 mEq/L (23-29); Chloride 108 mEq/L (98-107); Glucose 103 mg/dL (70-105); Osmolality,Calculated 286 (280-300); Potassium 4.1 mEq/L (3.5-5.1); Sodium 137 mEq/L (136-145); Troponin I < 0.03 ng/mL (< 0.04); eGFR For African Americans > 60 (> 60); eGFR For Non-African Americans > 60 (> 60)
[2017-10-13] MEDS ORDERED: Naloxone 0.4 MG/ML INJ IVP PRN (01:12)
--- NOTE | 2017-10-13 01:30 | Internal Med History&Physical ---
<Mariana Parker H - Last Filed: 10/13/17 01:19> Date of Encounter: 10/13/17 Time of Encounter: 01:19 Internal Medicine - H&P: HPI Chief complaint: left sided numbness and tingling Admitted From: Emergency Dept Plans for Post Hospital Care: Home History of present illness: Mr. 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 He also reported left-sided numbness and tingling radiating from the allen-inferior region of his left ear. Patient states he immediately presented to the emergency department at that point. Upon presentation to the emergency department, he was reporting intermittent episodes of chest pain throughout the day that were substernal and sharp in nature. These radiated to her right and left chest. His chest pain was not associated with exertion, diaphoresis, or shortness of breath. Patient denies any cardiac history including LHC or stents. Per patient, he is still currently undergoing workup for his CVA in August including wearing a loop recorder implanted by Dr. Raymundo during his last hospital admission. He states he is currently taking aspirin, simvastatin, and a muscle relaxer. He is currently undergoing speech therapy for speech deficits residual from his CVA. CT of the head obtained in the emergency department was negative for any acute process, however, left frontoparietal encephalomalacia was noted. Echocardiogram obtained in August demonstrated a small PFO which was the only abnormality noted during CVA workup including hypercoagulability panel, CTA of the head and neck, and echocardiogram. Currently, patient is resting comfortably. He denies any residual symptoms on the left side of his body, however, he does state he is still having some left- sided numbness and tingling in his knee. He is currently chest pain-free. He denies nausea, vomiting, diaphoresis, shortness, headaches, dizziness, chills or night sweats. He denies dysuria hematuria or hematochezia. He denies any visual disturbances. Past Med Surg Social Fam HX - Past Medical History Attestation: Yes The following information was validated with the patient. Source: patient, old records reviewed Medical history: CVA Psychiatric history: no psych history - Past Surgical History Surgical History: appendectomy - Social History Smoking Status: Current every day smoker Smokeless Tobacco Status: Yes Alcohol use: rarely Drug use: none - Family History Mother Name: Bela Oden Age: 66 Family Member Ethnicity: Non- Living Status: Still Living Hx Family Cardiac Disorders: Yes Hx Family Respiratory Disorders: No Hx Family Cancer: No Hx Family GI Disorders: Yes (Diverticulitis) Hx Family Genitourinary Disorders: No Hx Family Endocrine Disorder: Yes (Hypothyroid) Hx Family Musculoskeletal Disorders: No Hx Family Neuromuscular Disorders: No Hx Family Neurologic Disorders: No Hx Family HEENT Disorders: No Hx Family Autoimmune Disorders: No Hx Family Reproductive Disorders: No Hx Family Psychosocial Disorders: No Hx Family Medical Disorders: No Father Name: Bela Oden Age: 66 Family Member Ethnicity: Non- Twin of Family Member: Yes, Fraternal Living Status: Still Living Hx Family Cardiac Disorders: Yes Hx Family Respiratory Disorders: No Hx Family Cancer: No Hx Family GI Disorders: Yes (Diverticulitis) Hx Family Genitourinary Disorders: No Hx Family Endocrine Disorder: Yes (Hypothyroid) Hx Family Musculoskeletal Disorders: No Hx Family Neuromuscular Disorders: No Hx Family Neurologic Disorders: No Hx Family HEENT Disorders: No Hx Family Autoimmune Disorders: No Hx Family Reproductive Disorders: No Hx Family Psychosocial Disorders: No Hx Family Medical Disorders: No Internal Medicine - H&P: Meds Aspirin Enteric Coated [Aspirin EC] 325 mg PO DAILY 10/12/17 [History] Simvastatin [Zocor] 20 mg PO HS 10/12/17 [History] Tizanidine HCl 2 mg PO HS 10/12/17 [History] 3 Allergy/AdvReac Type Severity Reaction Status Date / Time No Known Allergies Allergy Verified 08/14/17 13:05 All Systems PM: A 10-system review of systems was performed and is negative for pertinent findings except as documented above in the HPI. - Constitutional Constitutional: no chills, no fatigue, no falls, no weakness, no weight gain, no weight loss - EENT Eyes: no blurry vision, no decreased night vision, no diplopia, no loss of vision Ears: no decreased hearing Nose, mouth and throat: no nasal congestion - Cardiovascular Cardiovascular ROS IM: chest pain, no claudication, no diaphoresis, no dyspnea, no dyspnea on exertion, no edema, no irregular heart rhythm, no lightheadedness , no palpitations, no paroxysmal nocturnal dyspnea, no syncope - Respiratory Respiratory: no cough, no dyspnea - Gastrointestinal Gastrointestinal: no abdominal pain, no change in bowel habits, no coffee ground emesis, no constipation, no hematemesis, no hematochezia, no melena, no nausea, no vomiting - Genitourinary Genitourinary ROS male: no dysuria, no hematuria - Musculoskeletal Musculoskeletal ROS IM: numbness, tingling, no arthralgias, no limited range of motion - Integumentary Integumentary IM: no erythema, no rash, no jaundice - Neurological Neurological ROS: abnormal gait, abnormal speech, focal weakness, numbness, paresthesias, weakness, no abnormal hearing, no abnormal movements, no confusion , no radicular pain, no tremor(s), no vertigo - Endocrine Endocrine IM: no cold intolerance, no flushing, no heat intolerance - Constitutional Vitals: Temp Pulse Resp BP Pulse Ox 98.1 F 89 16 124/78 94 10/13/17 01:15 10/13/17 01:15 10/13/17 01:15 10/13/17 01:15 10/13/17 01:15 General appearance: Present: A&O X 3, pleasant, no acute distress, answers questions appropriately - Head Head exam: Present: atraumatic, normal inspection, normocephalic - Eye Eye exam: Present: PERRL, conjuntiva pink, sclera anicteric. Absent: nystagmus Pupils: Present: normal accommodation, PERRL - Neck Neck exam general surgery: Present: supple, trachea midline. Absent: lymphadenopathy - Respiratory Respiratory exam: Present: CTAB. Absent: accessory muscle use, rales, rhonchi, wheezes - Cardiovascular Cardiovascular exam: Present: RRR, +S1, +S2. Absent: diastolic murmur, gallop, rubs, systolic murmur - GI/Abdominal GI/Abdominal exam: Present: normal bowel sounds, soft, no peritoneal signs. Absent: distended, firm, guarding, rebound, tenderness - Extremities Exam Extremities exam: Present: warm, radial pulses palpable and symmetrical. Absent : calf tenderness, cyanotic, joint swelling, pedal edema, tenderness - Neurological Exam Neurological exam: Present: abnormal gait (limp noted on left side during healing toe ambulation), alert, oriented X3, reflexes normal, strengths equal and symetr throughout, speech deficit (chronic and residual from prior CVA). Absent: pronater drift, facial droop - Expanded Neurological Exam Speech: Present: expressive aphasia (language dysfluency) Cranial Nerves: EOM's intact PM: Normal, gag reflex PM: Normal, nystagmus PM: Normal, tongue deviation PM: Normal Cerebellar function: finger to nose: Normal, heel to michael: Normal, Romberg: Normal Upper motor neuron: pronator drift: Normal Sensory exam: LE 2 point discrimination: Normal, lower extremity light touch: Normal, lower extremity pin prick: Normal, upper extremity light touch: Normal, upper extremity pin prick: Normal Neuro motor strength exam: LUE: 5, RUE: 5, LLE: 5, RLE: 5 DTR: achilles tendon (L): 2+, achilles tendon (R): 2+, bicep (L): 2+, bicep (R) : 2+, brachioradialis (L): 2+, brachioradialis (R): 2+, patellar (L): 2+, patellar (R): 2+, tricep (L): 2+, tricep (R): 2+ - Psychiatric Psychiatric exam: Present: normal affect, normal mood - Skin Skin exam: Present: dry, intact Internal Med - H&P Results - Labs CBC & Chem 7: 10/12/17 18:45 10/12/17 18:45 - Assessment and plan (1) TIA (transient ischemic attack) Current Visit: Yes Status: Acute Assessment and plan: 47 yo male with PMHx of CVA 2 months ago here for stroke-like symptoms that started today and resolved within a few hours in the ED. -Continue lifestyle modifications, smoking cessation counseling provided. -MR head and brain in the morning. -Cardiology consulted. -Neurology consult. -Continue home ASA and statin. -Q2hr neuro checks. Qualifiers: Transient cerebral ischemia type: unspecified Qualified Code(s): G45.9 - Transient cerebral ischemic attack, unspecified (2) PFO (patent foramen ovale) Current Visit: No Status: Acute Assessment and plan: Echocardiogram 08/2017 demonstrates PFO with right to left shunting. -Patient currently wearing a loop recorder placed by Dr. Raymundo to rule out underlying arrhythmias as potential cause of patient's CVA. Interrogation in office September 23 with no arrhythmias at that point noted. -Cardiology consulted. (3) Tingling of left arm and left side of face Current Visit: Yes Status: Acute Assessment and plan: see management above under TIA. (4) Numbness and tingling of right leg Current Visit: Yes Status: Acute Assessment and plan: See managment as above under TIA. - Time Spent With Patient Total time spent is greater than 50% in coordination of care (as documented) at patient's floor/unit and/or counseling patient: <Mason Arboleda - Last Filed: 10/13/17 05:46> Date of Encounter: 10/13/17 Time of Encounter: 04:05 - Cardiovascular Cardiovascular ROS IM: chest pain, no dyspnea, no dyspnea on exertion - Respiratory Respiratory: no cough, no hemoptysis - Gastrointestinal Gastrointestinal: no abdominal pain, no diarrhea, no vomiting - Genitourinary Genitourinary ROS male: no dysuria - Integumentary Integumentary IM: no rash - Neurological Neurological ROS: focal weakness, numbness - Psychiatric Psychiatric: no anxiety, no depression - Constitutional Vitals: Temp Pulse Resp BP Pulse Ox 98.3 F 60 16 100/61 96 10/13/17 04:38 10/13/17 04:38 10/13/17 04:38 10/13/17 04:38 10/13/17 04:38 General appearance: Present: cooperative, A&O X 3, pleasant, no acute distress, answers questions appropriately - Eye Eye exam: Present: EOMI, PERRL. Absent: scleral icterus Pupils: Present: normal accommodation - ENT ENT exam: Present: mucous membranes dry, normal exam - Neck Neck exam general surgery: Present: full ROM, supple. Absent: tenderness, nuchal rigidity, thyromegaly - Expanded Neck Exam Neck exam: Absent: carotid bruit - Respiratory Respiratory exam: Present: CTAB. Absent: chest wall tenderness, rales, rhonchi , wheezes - Cardiovascular Cardiovascular exam: Present: RRR, +S1, +S2. Absent: diastolic murmur, systolic murmur - GI/Abdominal GI/Abdominal exam: Present: soft. Absent: guarding, hepatomegaly, splenomegaly - Extremities Exam Extremities exam: Present: full ROM, warm. Absent: calf tenderness - Back Exam Back exam: Present: normal inspection. Absent: CVA tenderness (L), CVA tenderness (R) - Neurological Exam Neurological exam: Present: alert, oriented X3, reflexes normal, strengths equal and symetr throughout, speech deficit (chronic and residual from prior CVA ; mild expressive dysphasia) - Psychiatric Psychiatric exam: Present: normal affect, normal mood - Skin Skin exam: Present: dry, warm Internal Med - H&P Results - Labs CBC & Chem 7: 10/13/17 01:24 10/13/17 01:24 Labs: Short CBC 10/13/17 Range/Units 01:24 WBC 9.9 (4.3-11.1) K/mcL Hgb 15.0 (12.9-16.9) g/dL Hct 44.1 (37.5-50.1) % Plt Count 213 (140-400) K/mcL Neutrophils # 4.5 (1.6-8.9) K/mcL BMP 10/13/17 01:24 Sodium 138 Potassium 4.2 Chloride 108 H Carbon Dioxide 26 BUN 18 Creatinine 1.09 Glucose 116 H Calcium 9.4 Cardiac Enzymes 10/13/17 Range/Units 01:24 Troponin I < 0.03 (< 0.04) ng/mL - EKG Data -: EKG Interpreted by Myself - EKG Data Prior EKG available for review: no EKG comments: 10/13/17 05:42 NSR; no acute changes - Diagnostic Studies Chest x-ray Status: image reviewed by me (negative) - Attending Attestation I discussed the patient TANANA, PMH, ROS, lab data and exam findings with Dr. Parker. I then saw and examined patient independently as well. Patient has had resolution of symptoms now except for his residual dysphasia from initial stroke. We will continue his home medication as appropriate and proceed with MRI brain. I agree with Cardiology and Neurology consultation given his recent stroke and ongoing cardiac evaluation. Patient may benefit from dual anti- platelet therapy as prevention of future stroke. I will defer to cardiology and neurology. Other than my comments above and noted exam findings, I agree with Dr. Parker' s assessment and plan. - Assessment and plan (1) PFO (patent foramen ovale) Current Visit: No Status: Acute (2) TIA (transient ischemic attack) Current Visit: Yes Status: Acute Qualifiers: Transient cerebral ischemia type: unspecified Qualified Code(s): G45.9 - Transient cerebral ischemic attack, unspecified (3) Tingling of left arm and left side of face Current Visit: Yes Status: Acute (4) Numbness and tingling of right leg Current Visit: Yes Status: Acute - Time Spent With Patient Total time spent is greater than 50% in coordination of care (as documented) at patient's floor/unit and/or counseling patient:
[2017-10-13 01:36] LABS: Basophils # 0.1 K/mcL (0.0-0.2); Basophils % 1.1 %; Eosinophils # 0.4 K/mcL (0.0-0.6); Eosinophils % 4.3 %; Hematocrit 44.1 % (37.5-50.1); Immature Granulocytes % 0.2 % (0-4); Lymphocytes % 40.2 %; Mean Corpuscular Hemoglobin 30.4 pg (28.0-33.3); Mean Corpuscular Volume 89.3 fL (83.0-100.0); Mean Platelet Volume 9.5 fL (9.4-12.4); Monocytes # 0.8 K/mcL (0.0-1.3); Monocytes % 8.4 %; Neutrophils # 4.5 K/mcL (1.6-8.9); Platelet Count 213 K/mcL (140-400); Red Blood Count 4.94 M/mcL (4.19-5.50); Red Cell Distribution Width 13.6 % (11.5-14.5); Segmented Neutrophils % 45.8 %
[2017-10-13 01:54] LABS: BUN/Creatinine Ratio 17 (6-26); Blood Urea Nitrogen 18 mg/dL (6-20); Calcium 9.4 mg/dL (8.6-10.3); Carbon Dioxide 26 mEq/L (23-29); Chloride 108 mEq/L (98-107); Chol/HDL Ratio 2.8 (0-4.9); Cholesterol 119 mg/dL (< 200); Glucose 116 mg/dL (70-105); HDL Cholesterol 42 mg/dL (40-59); LDL Cholesterol,Calculated 62 mg/dL (0-99); Osmolality,Calculated 289 (280-300); Potassium 4.2 mEq/L (3.5-5.1); Sodium 138 mEq/L (136-145); Triglycerides 74 mg/dL (< 150); eGFR For African Americans > 60 (> 60); eGFR For Non-African Americans > 60 (> 60)
[2017-10-13] MEDS: tiZANidine 4 MG TABLET PO SCH ×2 (03:42→20:50)
[2017-10-13] MEDS: *HR* Heparin 5,000 UNIT/ML VIAL SQ SCH ×2 (07:57→17:57)
[2017-10-13] MEDS: Aspirin Enteric Coated 325 MG Tablet PO SCH (08:52)
--- NOTE | 2017-10-13 13:08 | Neurology - Consult Note ---
<Duy Schroeder - Last Filed: 10/13/17 14:35> Date of Encounter: 10/13/17 Time of Encounter: 13:03 Assessment and Plan (1) TIA (transient ischemic attack) Current Visit: Yes Status: Suspected Neruological exam nonfocal, nonlateralizing. Head CT scan negative for acute changes and shows encephalomalacia in the left posterior frontal/parietal region from acute infarct in August 2017. MRI negative for acute infarct. Patient had an usual symptoms of pain/numbness of his left elbow and left knee which then spread proximal distal to the joints which lasted 2 hours and resolved EKG shows normal sinus rhythm. From previous strokes he has residual symptoms of dysarthria and right facial numbness, tingling. pervious coagulation work up negative. Continue aspirin and statin. LDL less than 70, at goal. Patient's symptoms unlikely due to neurological deficit. Patient does not need further workup from neurological perspective. Recommend continuing aspirin and statin. Qualifiers: Transient cerebral ischemia type: unspecified Qualified Code(s): G45.9 - Transient cerebral ischemic attack, unspecified (2) PFO (patent foramen ovale) Current Visit: Yes Status: Acute DHARMESH in August 2017 showed LVEF of 60-65% with evidence of PFO. That time patient also had venous Dopplers done bilaterally which were negative. (3) Chest pain Current Visit: Yes Status: Acute as per primary cardiology on board. Qualifiers: Chest pain type: unspecified Qualified Code(s): R07.9 - Chest pain, unspecified History of Present Illness Chief complaint: numbness/tingling HPI: Mr. Crowe is a 47 year old male history of recent CVA in August 2017 presented with chief complaint of left upper extremity and left lower extremity numbness and tingling. Patient reports numbness and tingling started with left elbow and left knee joint and radiated up and down both extremities. This lasted 2 hours. Also reported chest pain substernal and sharp with radiation to left side. He also reported headache. He denied vision changes, difficulty swallowing, changes in hearing, weakness, syncope, confusion, difficulty with gait or balance. Patient had a recent left MCA infarct in August 2017 with residual dysarthria. At that time cardiac showed PFO. Patient has a loop recorder. He was on aspirin and statin at home. He has undergone undergoing speech therapy first dysarthria. CT scan on admission was negative for any acute changes but did show left frontotemporal encephalomalacia. Chest x-ray, MRI are negative for any acute changes. This morning patient reports his initial symptoms have not come back. He denies headache, vision changes, shortness of breath, chest pain, nausea, vomiting, dizziness. Past Med Surg Social Fam HX - Past Medical History Medical history: CVA Psychiatric history: no psych history - Past Surgical History Surgical History: appendectomy - Social History Smoking Status: Current every day smoker Smokeless Tobacco Status: Yes Alcohol use: rarely Drug use: none - Family History Mother Name: Bela Oden Age: 66 Family Member Ethnicity: Non- Living Status: Still Living Hx Family Cardiac Disorders: Yes Hx Family Respiratory Disorders: No Hx Family Cancer: No Hx Family GI Disorders: Yes (Diverticulitis) Hx Family Genitourinary Disorders: No Hx Family Endocrine Disorder: Yes (Hypothyroid) Hx Family Musculoskeletal Disorders: No Hx Family Neuromuscular Disorders: No Hx Family Neurologic Disorders: No Hx Family HEENT Disorders: No Hx Family Autoimmune Disorders: No Hx Family Reproductive Disorders: No Hx Family Psychosocial Disorders: No Hx Family Medical Disorders: No Father Name: Bela Oden Age: 66 Family Member Ethnicity: Non- Twin of Family Member: Yes, Fraternal Living Status: Still Living Hx Family Cardiac Disorders: Yes Hx Family Respiratory Disorders: No Hx Family Cancer: No Hx Family GI Disorders: Yes (Diverticulitis) Hx Family Genitourinary Disorders: No Hx Family Endocrine Disorder: Yes (Hypothyroid) Hx Family Musculoskeletal Disorders: No Hx Family Neuromuscular Disorders: No Hx Family Neurologic Disorders: No Hx Family HEENT Disorders: No Hx Family Autoimmune Disorders: No Hx Family Reproductive Disorders: No Hx Family Psychosocial Disorders: No Hx Family Medical Disorders: No Medications and Allergies Aspirin Enteric Coated [Aspirin EC] 325 mg PO DAILY 10/12/17 [History] Simvastatin [Zocor] 20 mg PO HS 10/12/17 [History] Tizanidine HCl 2 mg PO HS 10/12/17 [History] 3 Allergy/AdvReac Type Severity Reaction Status Date / Time No Known Allergies Allergy Verified 08/14/17 13:05 All Systems: The remainder of the systems were reviewed and are negative Review of Systems: Constitutional: Denies fever, chills HEENT: Denies headache, vision changes, neck pain, sore throat, rhinorrhea Heart: reported chest pain, denies palpitations Lungs: Denies shortness of breath cough Abdomen: Denies abdominal pain nausea vomiting diarrhea Back: Denies back pain Kidney: Denies dysuria, hematuria Skin: warm and dry Extremities: Denies swelling, pain Neuro: Reported numbness and tingling, reported dysarthria Physical Examination - Vital Signs Vital Signs: Initial Vital Signs Temp Pulse Resp BP Pulse Ox 98.6 F 78 18 137/91 99 10/12/17 18:33 10/12/17 18:33 10/12/17 18:33 10/12/17 18:33 10/12/17 18:33 - Constitutional General appearance: comfortable - Neurologic Sensorimotor examination: intact Detailed motor examination: full strength in all major muscle groups Motor examination - right side: 5/5: deltoids, biceps, triceps, wrist flexion, wrist extension, square shear operator, hip flexors, tibialis Anterior, quadriceps, toe extension (EHL), plantarflexion Motor examination - left side: 5/5: deltoids, biceps, triceps, wrist flexion, wrist extension, hip flexors, square shear operator, quadriceps, tibialis Anterior, toe extension (EHL), plantarflexion Detailed sensory examination: intact, light touch (Intact), pain (Intact), temperature (Intact) Reflex and gait examination: intact Reflexes: Biceps: 2+, Triceps: 2+, Brachioradialis: 2+, Patella: 2+, Achilles: 2 + Mental Status Examination: awake, alert, oriented to person, oriented to place, oriented to time, follows commands appropriately, answers questions appropriately, no agnosia, no aphasia, no aproxia Cranial nerve examination: PERRL, EOMI, visual jarrett intact, sensory to face intact, mastication intact, no facial asymmetry is present, no dysarthria, hearing is intact symmetrically, soft palate elevates bilaterally upon phonation , gag reflex intact, flexes SCM and trapezius muscles symmetrically with full power, tongue protrudes midline, no atrophy or facial fasiculations present Cerebellar examination: no dysmetria, performs finger to nose and heel to michael symmetrically without ataxia, no gait ataxia, no truncal ataxia, no difficulty with rapid alternating movements Results - Laboratory Findings CBC and BMP: 10/13/17 01:24 10/13/17 01:24 Abnormal lab findings: Abnormal lab results APTT 25.8 Seconds (26.0-36.0) L 10/12/17 18:45 Chloride 108 mEq/L (98-107) H 10/13/17 01:24 Glucose 116 mg/dL (70-105) H 10/13/17 01:24 Consult Discharge Plan - Plan Referrals: Syed Mireles MD [Primary Care Provider] - <Yinka Reyes - Last Filed: 10/13/17 17:03> Date of Encounter: 10/13/17 History of Present Illness HPI: Mr. Crowe is a 47 year old male with recent history of CVA during who developed acute onset of sharp pain involving his left elbow and left knee, followed by some weakness when he was coming off a tractor. He had stroke during when he developed paresthesia involving his right arm without weakness therefore he was concerned that he had such sensory deficits and pain. In the ER, CT of head showed no acute intracranial abnormality except focal hypointensity from the previous stroke. His neurological symptoms essentially resolved. MRI of brain showed no evidence of stroke. Patient has had full stroke work up in including hypercoagualable state which returned negative. He has had DHARMESH showing presence of PFO. Not sure this is a true TIA and would make no changes in his antiplatelet therapy. No repeat stroke work up appears necessary. All Systems: The remainder of the systems were reviewed and are negative Physical Examination - Vital Signs Vital Signs: Initial Vital Signs Temp Pulse Resp BP Pulse Ox 98.6 F 78 18 137/91 99 10/12/17 18:33 10/12/17 18:33 10/12/17 18:33 10/12/17 18:33 10/12/17 18:33 Results - Laboratory Findings CBC and BMP: 10/13/17 01:24 10/13/17 01:24 Abnormal lab findings: Abnormal lab results APTT 25.8 Seconds (26.0-36.0) L 10/12/17 18:45 Chloride 108 mEq/L (98-107) H 10/13/17 01:24 Glucose 116 mg/dL (70-105) H 10/13/17 01:24
--- NOTE | 2017-10-13 13:22 | Cardiology Consult Note ---
Date of Encounter: 10/13/17 Time of Encounter: 12:30 Assessment and Plan (1) Chest pain Current Visit: Yes Status: Acute Intermittent chest pain. Atypical pain. Cardiac risk factors of tobacco use, h/o prior CVA. TTE from 08/2017 reviewed. LVEF 60-65%. Normal LV chamber size, wall thickness and function. Mild left ventricular diastolic dysfunction. Normal right ventricular structure and function. Unable to estimate RVSP due to lack of TR jet. No significant valvular dysfunction. Suboptimal image quality, but there evidence of a right to left shunt with agitated saline, possibly representing a small PFO. DHARMESH completed and did show small PFO. Discussed with Dr. Lobato, recommend stress test. Qualifiers: Chest pain type: unspecified Qualified Code(s): R07.9 - Chest pain, unspecified Discussion w patient/family: The assessment and plan as outlined above was discussed with the patient and/or family members who expressed understanding and agreement. All questions were answered. Thank you for involving us in the care of your patient. Please call with any questions. History of Present Illness Consult date: 10/13/17 Requesting physician: Mason Arboleda Consult reason: Chest pain Chief complaint: Left sided numbness and tingling History of present illness: Mr. Crowe is a 47 year old male with past medical history of CVA 08/2017, loop recorder and tobacco use. He presents with the c/o left sided facial, arm, and leg tingling. During his stay he noted that he has occasional sharp left sided chest pain radiating to the right occurring at rest. The pain lasts a few seconds before resolving on its own. He states that is is not unusual for him to have these pains over the last few months. Cardiology consulted for evaluation of chest pain. He denies SOB. Denies palpitations. Denies orthopnea, PND, or edema. Past Med Surg Social Fam HX - Past Medical History Attestation: Yes The following information was validated with the patient. Medical history: CVA Psychiatric history: no psych history - Past Surgical History Surgical History: appendectomy - Social History Smoking Status: Current every day smoker Smokeless Tobacco Status: Yes Alcohol use: rarely Drug use: none - Family History Mother Name: Bela Oden Age: 66 Family Member Ethnicity: Non- Living Status: Still Living Hx Family Cardiac Disorders: Yes Hx Family Respiratory Disorders: No Hx Family Cancer: No Hx Family GI Disorders: Yes (Diverticulitis) Hx Family Genitourinary Disorders: No Hx Family Endocrine Disorder: Yes (Hypothyroid) Hx Family Musculoskeletal Disorders: No Hx Family Neuromuscular Disorders: No Hx Family Neurologic Disorders: No Hx Family HEENT Disorders: No Hx Family Autoimmune Disorders: No Hx Family Reproductive Disorders: No Hx Family Psychosocial Disorders: No Hx Family Medical Disorders: No Father Name: Bela Oden Age: 66 Family Member Ethnicity: Non- Twin of Family Member: Yes, Fraternal Living Status: Still Living Hx Family Cardiac Disorders: Yes Hx Family Respiratory Disorders: No Hx Family Cancer: No Hx Family GI Disorders: Yes (Diverticulitis) Hx Family Genitourinary Disorders: No Hx Family Endocrine Disorder: Yes (Hypothyroid) Hx Family Musculoskeletal Disorders: No Hx Family Neuromuscular Disorders: No Hx Family Neurologic Disorders: No Hx Family HEENT Disorders: No Hx Family Autoimmune Disorders: No Hx Family Reproductive Disorders: No Hx Family Psychosocial Disorders: No Hx Family Medical Disorders: No Medications and Allergies Aspirin Enteric Coated [Aspirin EC] 325 mg PO DAILY 10/12/17 [History] Simvastatin [Zocor] 20 mg PO HS 10/12/17 [History] Tizanidine HCl 2 mg PO HS 10/12/17 [History] 3 Allergy/AdvReac Type Severity Reaction Status Date / Time No Known Allergies Allergy Verified 08/14/17 13:05 All Systems Review: The remainder of the systems were reviewed and are negative Physical Examination Vital Signs, Last 4 Hours Temp Pulse Resp BP Pulse Ox 10/13/17 10:15 97.8 F 59 16 104/67 97 General: Conversant, No Apparent Distress HEENT: Atraumatic, Normocephaly, Mucus Membranes Moist Neck: No JVD, Normal carotid pulses Cardiac: Reg Rate and Rhythm, Normal S1 and S2, No Murmur Lungs: Normal Breath Sounds, No Wheeze, Rales, Rhonchi Neuro: Alert and responsive, No focal deficits noted Abdomen: Soft, Non-Tender Skin: No rashes noted on visualized skin Musculoskeletal: No Chest Wall Tenderness Extremities: No Clubbing, No Cyanosis, No Edema, Normal Pulses Results 10/13/17 01:24 10/13/17 01:24 Lab Results 10/13/17 10/13/17 10/13/17 01:24 01:24 01:24 WBC 9.9 Hgb 15.0 Hct 44.1 Plt Count 213 Sodium 138 Potassium 4.2 Chloride 108 H Carbon Dioxide 26 BUN 18 Creatinine 1.09 Glucose 116 H Calcium 9.4 Troponin I < 0.03 10/13/17 09:57 WBC Hgb Hct Plt Count Sodium Potassium Chloride Carbon Dioxide BUN Creatinine Glucose Calcium Troponin I < 0.03 - Imaging and Cardiology Echo: report reviewed - EKG Interpretation EKG results cardiology: personally reviewed Consult Discharge Plan - Plan Referrals: Syed Mireles MD [Primary Care Provider] -
--- NOTE | 2017-10-13 15:36 | Internal Med Progress Note ---
<Truong Frank - Last Filed: 10/13/17 15:31> Date of Encounter: 10/13/17 Time of Encounter: 08:00 - Assessment and plan (1) Stroke-like symptoms Current Visit: Yes Status: Acute Assessment and plan: Old CVA from 08/21 affected Left frontal, left parietal, and cerebellar. Based on current symptoms, would expect lacunar or R infarct. So far MRI, and head CT are negative for acute infarct. Neurology following. LDL <70 @ goal. all previous hypercoagulable workup is negative. Symptoms are currently resolved, besides mild CN V2 L decreased sensation. - appreciate neurology input. Appears to be unlikely from new infarct and recommended further outpatient follow up - ct ASA, and statin (2) Chest pain Current Visit: Yes Status: Acute Assessment and plan: Cardio on board, per recommendations patient will receive stress. - cardiac diet Qualifiers: Chest pain type: unspecified Qualified Code(s): R07.9 - Chest pain, unspecified (3) PFO (patent foramen ovale) Current Visit: Yes Status: Acute Assessment and plan: Echocardiogram 08/2017 demonstrates PFO with right to left shunting. Concerned for paradoxical embolism. Patient had soreness in left calf - Patient currently wearing a loop recorder placed by Dr. Raymundo to rule out underlying arrhythmias as potential cause of patient's CVA. Interrogation in office September 23 with no arrhythmias at that point noted. - cardio following, appreciate their input - cardio recommends inpatient stress test - ordered lower extremity doppler, concern for throwing clot (4) Tingling of left arm and left side of face Current Visit: Yes Status: Acute Assessment and plan: see above (5) Numbness and tingling of right leg Current Visit: Yes Status: Acute Assessment and plan: see above (6) DVT prophylaxis Current Visit: Yes Status: Acute Assessment and plan: ct Sq heparin - Time Spent With Patient Total time spent is greater than 50% in coordination of care (as documented) at patient's floor/unit and/or counseling patient: - Subjective Interval history: Mr Crowe is a 47 yo M w/ a pack day smoking hx, CVA in august presented with left sided numbness and tingling. Patient was doing work on his tractor when he had an sudden onset of pain in his elbow and knees. After he got off the tractor he noticed that he had numbness and tingling on his lower extremity , and upper extremity and left face. He immediately presented to [place] due to concerns of repeat CVA. On arrival in ED, his symptoms resolved besides his left mid face tingling. He also reports off and on chest pain located left anterior midline. Worsens when pushed on but is not present when not. Does not change with position or inhalation or exhalation. This has been going on for about a week. Patient denies SOB, swelling, or confusion. Patient states that he frequents chiropractor, last wass on tuesday - Constitutional Vitals: Temp Pulse Resp BP Pulse Ox 97.8 F 59 16 104/67 97 10/13/17 10:15 10/13/17 10:15 10/13/17 10:15 10/13/17 10:15 10/13/17 10:15 General appearance: Present: cooperative, A&O X 3, pleasant, no acute distress, answers questions appropriately - Head Head exam: Present: atraumatic, normocephalic - ENT ENT exam: Present: mucous membranes dry - Neck Neck exam general surgery: Present: supple - Respiratory Respiratory exam: Present: CTAB - Cardiovascular Cardiovascular exam: Present: RRR - GI/Abdominal GI/Abdominal exam: Present: normal bowel sounds, soft, no peritoneal signs. Absent: distended, tenderness - Extremities Exam Extremities exam: Present: warm, radial pulses palpable and symmetrical. Absent : calf tenderness, cyanotic, pedal edema - Neurological Exam Neurological exam: Present: alert, CN II-XII intact (CNV2 mild decrease in sensation on left), normal gait, oriented X3, reflexes normal, no focal deficits , strengths equal and symetr throughout. Absent: altered, pronater drift, facial droop, speech deficit - Psychiatric Psychiatric exam: Present: normal affect, normal mood Internal Medicine: Result - Labs CBC & Chem 7: 10/13/17 01:24 10/13/17 01:24 Labs: Short CBC 10/13/17 Range/Units 01:24 WBC 9.9 (4.3-11.1) K/mcL Hgb 15.0 (12.9-16.9) g/dL Hct 44.1 (37.5-50.1) % Plt Count 213 (140-400) K/mcL Neutrophils # 4.5 (1.6-8.9) K/mcL BMP 10/13/17 01:24 Sodium 138 Potassium 4.2 Chloride 108 H Carbon Dioxide 26 BUN 18 Creatinine 1.09 Glucose 116 H Calcium 9.4 Cardiac Enzymes 10/13/17 10/13/17 Range/Units 01:24 09:57 Troponin I < 0.03 < 0.03 (< 0.04) ng/mL - ABG Interpretation ABG results: PT/INR, D-dimer PT 10.4 Seconds (9.4-12.1) 10/12/17 18:45 - Impressions Impressions Brain MRI 10/13/17 01:10 IMPRESSION: 1. No evidence of acute infarction. 2. Chronic infarction with encephalomalacia along the left posterior sylvian fissure and left frontotemporal lobe. 3. Sequela of old infarctions in the cerebellar hemispheres bilaterally. D/ / 10/13/2017 08:56:08 Viktor Frost MD / earnold Interpreting Provider: Viktor Frost MD Consult Discharge Plan - Plan Referrals: Syed Mireles MD [Primary Care Provider] - <Ronny Holloway - Last Filed: 10/13/17 19:55> Date of Encounter: 10/13/17 - Assessment and plan (1) Chest pain Current Visit: Yes Status: Suspected Qualifiers: Chest pain type: chest pain due to myocardial ischemia Ischemic chest pain type: unstable angina pectoris Qualified Code(s): I20.0 - Unstable angina (2) PFO (patent foramen ovale) Current Visit: Yes Status: Chronic (3) Tingling of left arm and left side of face Current Visit: Yes Status: Acute (4) Numbness and tingling of right leg Current Visit: Yes Status: Acute (5) Stroke-like symptoms Current Visit: Yes Status: Acute (6) DVT prophylaxis Current Visit: Yes Status: Acute - Time Spent With Patient Total time spent is greater than 50% in coordination of care (as documented) at patient's floor/unit and/or counseling patient: - Constitutional Vitals: Temp Pulse Resp BP Pulse Ox 98.0 F 77 18 111/69 96 10/13/17 19:18 10/13/17 19:18 10/13/17 19:18 10/13/17 19:18 10/13/17 19:18 Internal Medicine: Result - Labs CBC & Chem 7: 10/13/17 01:24 10/13/17 01:24 Labs: Short CBC 10/13/17 Range/Units 01:24 WBC 9.9 (4.3-11.1) K/mcL Hgb 15.0 (12.9-16.9) g/dL Hct 44.1 (37.5-50.1) % Plt Count 213 (140-400) K/mcL Neutrophils # 4.5 (1.6-8.9) K/mcL BMP 10/13/17 01:24 Sodium 138 Potassium 4.2 Chloride 108 H Carbon Dioxide 26 BUN 18 Creatinine 1.09 Glucose 116 H Calcium 9.4 Cardiac Enzymes 10/13/17 10/13/17 10/13/17 Range/Units 01:24 09:57 16:21 Troponin I < 0.03 < 0.03 < 0.03 (< 0.04) ng/mL - ABG Interpretation ABG results: PT/INR, D-dimer PT 10.4 Seconds (9.4-12.1) 10/12/17 18:45 - Impressions Impressions Brain MRI 10/13/17 01:10 IMPRESSION: 1. No evidence of acute infarction. 2. Chronic infarction with encephalomalacia along the left posterior sylvian fissure and left frontotemporal lobe. 3. Sequela of old infarctions in the cerebellar hemispheres bilaterally. D/ / 10/13/2017 08:56:08 Viktor Frost MD / earnold Interpreting Provider: Viktor Frost MD - Attending Attestation I examined this patient and my medical decision-making was reviewed with the Resident Physician on 10/13/17. I agree with the documented findings, disposition and treatment plan as described except to the extent set forth below. Mr Crowe is currently in observation for TIA symptoms and chest pain. Mr Crowe is doing OK. No further symptoms. No CP now. Exam Alert Comfortable Mucus membranes dry Heart reg No wheeze I/P 1. Possible TIA 2. Chest pain - Stress tomorrow.
--- NOTE | 2017-10-13 17:05 | Electrocardiograph Report ---
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
[2017-10-14] MEDS: *HR* Heparin 5,000 UNIT/ML VIAL SQ SCH (05:31)
[2017-10-14] MEDS ORDERED: Regadenoson 0.4 MG/5 ML SYRINGE IVP ONE ×2 (05:32→07:34)
[2017-10-14 06:08] LABS: Basophils # 0.1 K/mcL (0.0-0.2); Basophils % 0.9 %; Eosinophils # 0.5 K/mcL (0.0-0.6); Hematocrit 45.7 % (37.5-50.1); Hemoglobin 15.7 g/dL (12.9-16.9); Immature Granulocytes % 0.4 % (0-4); Lymphocytes # 2.8 K/mcL (0.6-4.6); Lymphocytes % 34.8 %; Mean Corpuscular HGB Conc 34.4 g/dL (31.6-35.5); Mean Corpuscular Hemoglobin 30.8 pg (28.0-33.3); Mean Corpuscular Volume 89.8 fL (83.0-100.0); Mean Platelet Volume 9.7 fL (9.4-12.4); Monocytes # 0.7 K/mcL (0.0-1.3); Monocytes % 8.3 %; Platelet Count 226 K/mcL (140-400); Red Blood Count 5.09 M/mcL (4.19-5.50); Red Cell Distribution Width 13.4 % (11.5-14.5); Segmented Neutrophils % 49.6 %
[2017-10-14 06:24] LABS: Alanine Aminotransferase 32 Units/L (7-52); Albumin 3.9 g/dL (3.5-5.7); Albumin/Globulin Ratio 1.6 (1.1-2.2); Alkaline Phosphatase 70 Units/L (34-104); Aspartate Amino Transferase 19 Units/L (13-39); BUN/Creatinine Ratio 17 (6-26); Bilirubin,Total 0.6 mg/dL (0.3-1.0); Blood Urea Nitrogen 19 mg/dL (6-20); Calcium 9.1 mg/dL (8.6-10.3); Carbon Dioxide 23 mEq/L (23-29); Chloride 108 mEq/L (98-107); Globulin 2.4 g/dL (2.4-3.5); Glucose 108 mg/dL (70-105); Osmolality,Calculated 289 (280-300); Potassium 4.4 mEq/L (3.5-5.1); Sodium 138 mEq/L (136-145); Total Protein 6.3 g/dL (6.4-8.9); eGFR For African Americans > 60 (> 60); eGFR For Non-African Americans > 60 (> 60)
[2017-10-14] MEDS: Aspirin Enteric Coated 325 MG Tablet PO SCH (10:37)
[2017-10-14 10:58] VITALS: BP 103/68
--- NOTE | 2017-10-14 12:28 | Cardiology Progress Note ---
Date of Encounter: 10/14/17 Time of Encounter: 12:26 Assessment and Plan (1) Chest pain Current Visit: Yes Status: Suspected Intermittent atypical chest pain. Cardiac risk factors of tobacco use, h/o prior CVA. TTE from 08/2017 reviewed. LVEF 60-65%. Normal LV chamber size, wall thickness and function. Mild left ventricular diastolic dysfunction. Normal right ventricular structure and function. Unable to estimate RVSP due to lack of TR jet. No significant valvular dysfunction. Suboptimal image quality, but there evidence of a right to left shunt with agitated saline, possibly representing a small PFO. DHARMESH completed and did show small PFO. Mildly abnorma stress test. Reviewed with patient and . There was a small reversible apical inferior defect possibly representing small area of ischemia. I discussed LHC R/B/A. Discussed LHC verses medical management. It is not unreasonable to trial medical management and follow closely in the out-pt setting. Patient is considering. Start low dose beta-octavio. Qualifiers: Chest pain type: chest pain due to myocardial ischemia Ischemic chest pain type: unstable angina pectoris Qualified Code(s): I20.0 - Unstable angina (2) Abnormal stress test Current Visit: Yes Status: Acute See plan above. Discussion w patient/family: The assessment and plan as outlined above was discussed with the patient and/or family members who expressed understanding and agreement. All questions were answered. Thank you for involving us in the care of your patient. Please call with any questions. Subjective Principal diagnosis: Chest pain, left sided numbness and tingling, Stress test Interval history: Denies recurrent pain. Completed stress test today that was found to be abnormal. Objective Vital Signs, Last 4 Hours Temp Pulse Resp BP Pulse Ox 10/14/17 10:57 97.5 F L 75 16 103/68 96 General: Conversant, No Apparent Distress HEENT: Atraumatic, Normocephaly, Mucus Membranes Moist Neck: No JVD, Normal carotid pulses Cardiac: Reg Rate and Rhythm, Normal S1 and S2, No Murmur Lungs: Normal Breath Sounds, No Wheeze, Rales, Rhonchi Neuro: Alert and responsive, No focal deficits noted Abdomen: Soft, Non-Tender Skin: No rashes noted on visualized skin Musculoskeletal: No Chest Wall Tenderness Extremities: No Clubbing, No Cyanosis, No Edema, Normal Pulses Results 10/14/17 05:30 04/13/18 05:30 Lab Results 10/13/17 10/14/17 10/14/17 16:21 05:30 05:30 WBC 8.0 Hgb 15.7 Hct 45.7 Plt Count 226 Sodium 138 Potassium 4.4 Chloride 108 H Carbon Dioxide 23 BUN 19 Creatinine 1.10 Glucose 108 H Calcium 9.1 Total Bilirubin 0.6 AST 19 ALT 32 Alkaline Phosphatase 70 Troponin I < 0.03 Chest X-Ray 10/12/17 18:32 IMPRESSION: No acute process. D/ / Jaun Cordoba MD / Jaun Cordoba MD Interpreting Provider: Jaun Cordoba MD Head CT 10/12/17 18:33 IMPRESSION: No acute intracranial abnormality. Encephalomalacia in the left posterior frontal/parietal region adjacent to the sylvian fissure. This represented an acute infarct on the MRI of 08/14/2017. D/ / Yaw Londono MD / Yaw Londono MD Interpreting Provider: Yaw Londono MD Brain MRI 10/13/17 01:10 IMPRESSION: 1. No evidence of acute infarction. 2. Chronic infarction with encephalomalacia along the left posterior sylvian fissure and left frontotemporal lobe. 3. Sequela of old infarctions in the cerebellar hemispheres bilaterally. D/ / 10/13/2017 08:56:08 Viktor Frost MD / earnocarri Interpreting Provider: Viktor Frost MD - Imaging and Cardiology Stress Test: report reviewed Cardiac cath: report reviewed - EKG Interpretation EKG results cardiology: personally reviewed Consult Discharge Plan - Plan Referrals: Syed Mireles MD [Primary Care Provider] -
--- NOTE | 2017-10-14 13:42 | Discharge Summary ---
<Truong Frank - Last Filed: 10/14/17 13:36> Orders not resulted at time of discharge: Pending orders 10/13/17 09:57 JAMILA IgG GAIL rflx IFA Routine Cardiolipin IGG IGM IGA Routine Factor VIII, Activity Routine Homocysteine Routine 10/13/17 13:02 NM junito perf SPECT multi [NM] Routine 10/14/17 10:37 CT cervical spine wo con [CT] Routine CT thoracic spine wo con [CT] Routine Date of Encounter: 10/14/17 Time of Encounter: 13:36 - Discharge Diagnosis (1) PFO (patent foramen ovale) Priority: Secondary Status: Chronic (2) Chest pain Priority: Secondary Status: Suspected Qualifiers: Chest pain type: chest pain due to myocardial ischemia Ischemic chest pain type: unstable angina pectoris Qualified Code(s): I20.0 - Unstable angina (3) Tingling of left arm and left side of face Priority: Secondary Status: Acute (4) Numbness and tingling of right leg Priority: Secondary Status: Acute (5) Stroke-like symptoms Priority: Primary Status: Acute (6) DVT prophylaxis Priority: Secondary Status: Acute Hospital course: Mr. Crowe is a 47 year old male w/ pmh of PFO, CVA presented to [facility] ED with left elbow and kneed pain then numbness and tingling. Patient had a CXR, Head CT , and Brain MRI that showed no new processes. PAtient was put on CVA protocol with aspirin, statin, and appropriate BP control. Patient remained asymptomatic during hospitalization. Due to PFO, and soreness in right calf on exam a doppler study was ordered which prelim read was negative. A stress test was ordered and identified small sized, mild intesity, reversible apical inferior defect possibly representing a small area of ischemia. Patient was seen and evaluated by Cardiology and Neurology; both of which recommended follow up outpatient and no further inpatient workup. Cardiology recommeded low dose betablocker on discharge. holding of atorvastatin due to myalgias. And continue ASA. ASA 81, and lopressor 12.5 BID electronically sent. Follow up with Neurology and Cardiology outpatient. Discharge discussed with: patient Time spent discussing smoking cessation with patient: more than 10 minutes - Time Spent with Patient Total time spent providing and/or coordinating discharge services: Greater than 30 minutes - Discharge Medications Prescriptions: Aspirin Enteric Coated [Aspirin EC] 81 mg PO DAILY 30 Days #30 tablet. Metoprolol [Lopressor] 12.5 mg PO BID 30 Days #60 tablet Home Medications: Aspirin Enteric Coated [Aspirin EC] 325 mg PO DAILY 10/12/17 [History] Tizanidine HCl 2 mg PO HS 10/12/17 [History] Aspirin Enteric Coated [Aspirin EC] 81 mg PO DAILY 30 Days #30 tablet. [Rx] Metoprolol [Lopressor] 12.5 mg PO BID 30 Days #60 tablet 10/14/17 [Rx] Allergies/Adverse Reactions: 3 Allergy/AdvReac Type Severity Reaction Status Date / Time No Known Allergies Allergy Verified 08/14/17 13:05 Date of admission: 10/12/17 23:16 Primary care physician: Syed Mireles, Consults: 10/13/17 01:11 Consult to Neurology [CONS] Routine Consulting Provider: Neurology [facility] Reason for Consult: TIA/ recent CVA Call Completed: No Discharging clinician: Truong Frank Anticipated date of discharge: 10/14/17 - Constitutional Vitals: Temp Pulse Resp BP Pulse Ox 97.5 F L 75 16 103/68 96 10/14/17 10:57 10/14/17 10:57 10/14/17 10:57 10/14/17 10:57 10/14/17 10:57 General appearance: Present: cooperative, A&O X 3, pleasant, no acute distress, answers questions appropriately - Head Head exam: Present: normal inspection - ENT ENT exam: Present: normal exam - Respiratory Respiratory exam: Present: CTAB - Cardiovascular Cardiovascular exam: Present: RRR - Extremities Exam Extremities exam: Absent: pedal edema - Patient Status Disposition: Home, Self-Care Condition: Good Functional capacity at discharge: independent ambulation Overall status at discharge: patient is progressing back to baseline - Discharge Instructions Instructions: Metoprolol (By mouth), Aspirin (By mouth), Transient Ischemic Attack (DC), Ischemic Stroke (GEN) Follow Up With: Denis Lobato DO [Partnered Physician] - (Cardio to make f/u appointment ) Syed Mireles MD [Primary Care Provider] - (Office closed at this time please make a f/u appointment in 7-10 days) Olga Gamble MD [Partnered Physician] - 11/11/17 9:15 am - Diet and Activity Activity: increase activity as tolerated Diet: advance to your usual diet <Ronny Holloway - Last Filed: 10/14/17 20:00> - NOTES TO OUTPATIENT PROVIDER Notes to Outpatient Provider: Had slightly abnormal stress test - following with cardiology. Orders not resulted at time of discharge: Pending orders 10/13/17 09:57 JAMILA IgG GAIL rflx IFA Routine Cardiolipin IGG IGM IGA Routine Factor VIII, Activity Routine Homocysteine Routine 10/13/17 13:02 NM junito perf SPECT multi [NM] Routine Date of Encounter: 10/14/17 - Discharge Diagnosis (1) Chest pain Status: Suspected Qualifiers: Chest pain type: chest pain due to myocardial ischemia Ischemic chest pain type: unstable angina pectoris Qualified Code(s): I20.0 - Unstable angina (2) PFO (patent foramen ovale) Status: Chronic (3) Tingling of left arm and left side of face Status: Resolved (4) Numbness and tingling of right leg Status: Resolved (5) Tobacco abuse Priority: Secondary Status: Chronic (6) Stroke-like symptoms Status: Resolved (7) DVT prophylaxis Status: Acute Hospital course: Mr. Crowe is a 47 year old male - Time Spent with Patient Total time spent providing and/or coordinating discharge services: Date of admission: 10/12/17 23:16 Primary care physician: Syed Mireles, Consults: 10/13/17 01:11 Consult to Neurology [CONS] Routine Consulting Provider: [facility] Reason for Consult: TIA/ recent CVA Call Completed: No - Constitutional Vitals: Temp Pulse Resp BP Pulse Ox 97.5 F L 75 16 103/68 96 10/14/17 10:57 10/14/17 10:57 10/14/17 10:57 10/14/17 10:57 10/14/17 10:57 - Attending Attestation I examined this patient and my medical decision-making was reviewed with the Resident Physician on 10/14/17. I agree with the documented findings, disposition and treatment plan as described except to the extent set forth below. Mr Crowe has been in observation for concern of TIA or CVA. He had some chest pain and slightly abnormal stress test. He is afebrile and feeling OK at this time. He is going home and will follow up outpatient. Exam alert comfortable Mucus membranes dry Heart reg and not tachy lungs diminished Plan D/C home today.
[2017-10-15 10:36] LABS: ANA IgG by ELISA NONE DETECTED (None Detected)
== END 2017-10-14 17:45 | disposition home or self-care (01) ==
LOC: 2SOUTHHOLD 18:28 → EMEROO 18:28 → SUATTDRO 23:16 → 2SOUTHHOLD 10-13 00:18
PROVIDERS: ADMIT Pediatrics; ATTEND Internal Medicine

== ENCOUNTER 2021-07-01 23:21 | Observation (INO) ==
[2021-07-01] MEDS ORDERED: Isovue-370 500 ML BOTTLE IVP ONE (23:36)
[2021-07-02] LABS: INR 0.9; Prothrombin Time 10.5 Seconds (9.4-12.1)
[2021-07-02 00:07] LABS: Hematocrit 45.2 % (37.5-50.1); Hemoglobin 15.2 g/dL (12.9-16.9); Mean Corpuscular HGB Conc 33.6 g/dL (31.6-35.5); Mean Corpuscular Hemoglobin 30.8 pg (28.0-33.3); Mean Corpuscular Volume 91.5 fL (83.0-100.0); Mean Platelet Volume 9.1 fL (9.4-12.4); Platelet Count 263 K/mcL (140-400); Red Blood Count 4.94 M/mcL (4.19-5.50); Red Cell Distribution Width 13.6 % (11.5-14.5); White Blood Count 9.7 K/mcL (4.3-11.1)
[2021-07-02 00:15] LABS: BUN/Creatinine Ratio 15 (6-26); Blood Urea Nitrogen 15 mg/dL (6-20); Calcium 9.2 mg/dL (8.6-10.3); Carbon Dioxide 25 mEq/L (23-29); Chloride 103 mEq/L (98-107); Ethanol < 10 mg/dL (Less than 10); Glucose 110 mg/dL (70-105); Osmolality,Calculated 281 (280-300); Potassium 4.1 mEq/L (3.5-5.1); Sodium 135 mEq/L (136-145); Troponin I < 0.03 ng/mL (< 0.04); eGFR For African Americans > 60 (> 60); eGFR For Non-African Americans > 60 (> 60)
[2021-07-02 01:01] LABS: Bilirubin,Urine Negative (Negative); Blood,Urine Negative (Negative); Clarity,Urine Clear (Clear); Color,Urine Colorless (Yellow); Glucose,Urine (UA) Normal (Normal); Ketones,Urine Negative (Negative); Leukocyte Esterase,Urine Negative (Negative); Nitrite,Urine Negative (Negative); PH,Urine 6.5 pH Units (5.0-8.0); Protein,Urine Negative (Neg-Trace); Urobilinogen,Urine Normal (Normal)
[2021-07-02 01:15] LABS: Amphetamine Screen,Urine Negative ng/mL (Cutoff=1000); Barbiturate Screen,Urine Negative ng/mL (Cutoff=200); Benzodiazepines Screen,Urine Negative ng/mL (Cutoff=200); Cannabinoid Screen,Urine Negative ng/mL (Cutoff = 50); Cocaine Screen,Urine Negative ng/mL (Cutoff= 300); Opiate Screen,Urine Negative ng/mL (Cutoff=300); Phencyclidine Screen,Urine Negative ng/mL (Cutoff=25)
[2021-07-02] MEDS ORDERED: Aspirin Enteric Coated 325 MG Tablet PO STA (04:04)
[2021-07-02] MEDS ORDERED: Perflutren Lipid Microsphere 1.3 ML in 0.9 % Sodium Chloride 8.7 ML IVP PRN (04:06)
[2021-07-02] MEDS ORDERED: Ondansetron 4 MG/2 ML VIAL IVP PRN (05:09)
[2021-07-02] MEDS ORDERED: Naloxone 0.4 MG/ML INJ IVP PRN (05:09)
[2021-07-02] MEDS ORDERED: Acetaminophen 325 MG TABLET PO PRN (06:00)
[2021-07-02 07:11] VITALS: BP 108/71; PULSE 82; TEMP 97.9; O2SAT 93
[2021-07-03] MEDS ORDERED: Aspirin Enteric Coated 81 MG Tablet PO SCH (09:00)
== END 2021-07-02 13:15 | disposition home or self-care (01) ==
LOC: 3BNU 23:21 → EMEROOARM 23:21 → 3BNU 07-02 03:30
PROVIDERS: ADMIT Student in an Organized Health Care Education/Training Program; ATTEND Student in an Organized Health Care Education/Training Program